=== PATIENT | male | born 1980 | race Caucasian/White ===

== ENCOUNTER 2020-07-20 20:59 | Emergency (ER) | payer OTHER, SELFPAY ==
[2020-07-20 21:24] VITALS: BP 154/104; PULSE 133; RESP 18; TEMP 36.8; O2SAT 22; BMI 23.0
--- NOTE | 2020-07-20 21:35 | ED_ITS ---
HPI - Alcohol General Chief Complaint: ETOH/Substance Use Stated Complaint: detox Time Seen by Provider: 07/20/20 21:35 Source: patient Mode of arrival: ambulatory Limitations: no limitations History of Present Illness HPI narrative: Patient alcoholic was sober for 6 months started drinking again for last 1 week plan to taper it down feels in withdrawal shaking nauseated vomiting since yesterday any came his heart rate was 133 complaint: alcohol intoxication Last drink: Days (ago) (1) Chronic alcohol use: Yes Previous visits for alcohol intoxication: Yes Recent trauma: No Associated symptoms: nausea and vomiting Related Data Previous Rx's Medication Instructions Recorded chlordiazepoxide HCl 50 mg PO Q6-8H PRN #12 cap 07/21/20 Allergies Allergy/AdvReac Type Severity Reaction Status Date / Time azithromycin Allergy Unknown Verified 07/20/20 21:13 Review of Systems Review of Systems: REVIEW OF SYSTEMS: Pertinent positives and negatives are stated above in the history. GEN: no fevers, chills, fatigue HEENT: no nasal congestion, sore throat, ear pain NEURO: no headache, dizziness, focal weakness PULM: no cough, shortness of breath CV: no chest pain, palpitations, LE edema ABD: no abdominal pain, nausea, vomiting, diarrhea : no dysuria, urgency, frequency SKIN: no rash ROS otherwise negative x 10 PMFSH Social History Social History Alcohol intake: current Alcohol intake frequency: 3 or more drinks per day Alcohol type: beer, wine and hard liquor Smoking Status: Current every day smoker Use of substances other than those prescribed or required for medical reasons: Refusing to respond Advance Directives: No Advance Directives Information Provided: Yes Physical Exam Vital Signs: Vital Signs: Last Vital Signs Temp 98.2 F 07/20/20 21:24 Pulse 98 07/21/20 02:23 Resp 18 07/21/20 01:44 BP 132/90 H 07/21/20 02:23 Pulse Ox 100 07/21/20 01:00 Body Mass Index 23.0 Appearance: Alert. Oriented X3. No acute distress. Eyes: Pupils equal, round and reactive to light. ETOH ++ ENT: Pharynx normal. Neck: Normal inspection. Neck supple. CVS: Tachycardia, normal rhythm. Pulses normal. Respiratory: No respiratory distress. Breath sounds normal. Abdomen: Soft and nontender. Skin: Skin warm and dry. Normal skin color. Normal skin turgor. Extremities: No lower extremity edema. Good range of movement Neuro: Oriented X 3. No motor deficit. No sensory deficit. MDM - Alcohol MDM Narrative Medical decision making narrative: Patient feeling much better now will discharge him on Librium plan to go to detox as outpatient Differential Diagnosis Differential diagnosis: Likely alcohol dependence Lab Data Attestation: I reviewed the patient's lab results. Result diagrams: 07/20/20 21:53 07/20/20 21:53 Labs: Lab Results 07/20/20 07/20/20 07/20/20 Range/Units 21:53 21:53 21:53 WBC 10.3 (4.8-10.8) X10*3/uL RBC 5.15 (4.60-5.80) X10*6/uL Hgb 17.2 (14.0-18.0) g/dl Hct 47.1 (42-52) % MCV 91.5 (80-98) fL MCH 33.4 H (27.0-33.0) pg MCHC 36.5 H (31.0-36.0) g/dl RDW 12.2 (11.0-16.0) % Plt Count 151 L (160-400) X10*3/uL MPV 10.1 (9.4-12.4) fL Immature Gran % (Auto) 0.3 (0.0-0.4) % Neut % (Auto) 86.6 H (45-73) % Lymph % (Auto) 5.4 L (20-40) % [place] % (Auto) 7.5 (2-11) % Eos % (Auto) 0.1 (0-4) % Baso % (Auto) 0.1 (0-2) % Lymph # (Auto) 0.6 L (1.2-4.9) X10*3/uL [place] # (Auto) 0.8 (0.1-1.2) X10*3/uL Eos # (Auto) 0.0 (0.0-0.4) X10*3/uL Baso # (Auto) 0.0 (0.0-0.2) X10*3/uL Abs Immat Gran (auto) 0.03 (0.00-0.03) X10*3/uL Absolute Neuts (auto) 8.9 H (2.0-8.3) X10*3/uL Absolute Nucleated RBC 0.000 (0.0-0.012) X10*3/uL Nucleated RBC % (auto) 0.0 (0.0-0.2) /100WBC Smear Tech's Comments VERIFIED Sodium 134 L (135-145) mmol/L Potassium 3.6 (3.3-5.1) mmol/l Chloride 96 (96-108) mmol/L Carbon Dioxide 24 (22-29) mmol/L Anion Gap 18 (12-20) BUN 16 (9-16) mg/dL Creatinine 0.84 (0.5-1.4) mg/dL Estim Creat Clear Calc 128.7 Estimated GFR > 60 Random Glucose 165 H (60-115) mg/dL Calcium 8.3 L (8.4-10.2) mg/dL Magnesium 1.4 L* (1.6-2.6) mg/dL Total Bilirubin 1.8 H (0.0-1.0) mg/dL AST 132 H (5-37) U/L ALT 97 H (0-40) U/L Alkaline Phosphatase 75 (39-117) U/L Total Protein 7.2 (6.5-8.0) g/dL Albumin 4.3 (3.5-5.0) g/dL Urine Opiates Screen (Not Detect) Ur Barbiturates Screen (Not Detect) Ur Phencyclidine Scrn (Not Detect) Ur Amphetamines Screen (Not Detect) U Benzodiazepines Scrn (Not Detect) Urine Cocaine Screen (Not Detect) U Marijuana (THC) Screen (Not Detect) Ethyl Alcohol < 10 mg/dL 07/21/20 Range/Units 01:47 WBC (4.8-10.8) X10*3/uL RBC (4.60-5.80) X10*6/uL Hgb (14.0-18.0) g/dl Hct (42-52) % MCV (80-98) fL MCH (27.0-33.0) pg MCHC (31.0-36.0) g/dl RDW (11.0-16.0) % Plt Count (160-400) X10*3/uL MPV (9.4-12.4) fL Immature Gran % (Auto) (0.0-0.4) % Neut % (Auto) (45-73) % Lymph % (Auto) (20-40) % [place] % (Auto) (2-11) % Eos % (Auto) (0-4) % Baso % (Auto) (0-2) % Lymph # (Auto) (1.2-4.9) X10*3/uL [place] # (Auto) (0.1-1.2) X10*3/uL Eos # (Auto) (0.0-0.4) X10*3/uL Baso # (Auto) (0.0-0.2) X10*3/uL Abs Immat Gran (auto) (0.00-0.03) X10*3/uL Absolute Neuts (auto) (2.0-8.3) X10*3/uL Absolute Nucleated RBC (0.0-0.012) X10*3/uL Nucleated RBC % (auto) (0.0-0.2) /100WBC Smear Tech's Comments Sodium (135-145) mmol/L Potassium (3.3-5.1) mmol/l Chloride (96-108) mmol/L Carbon Dioxide (22-29) mmol/L Anion Gap (12-20) BUN (9-16) mg/dL Creatinine (0.5-1.4) mg/dL Estim Creat Clear Calc Estimated GFR Random Glucose (60-115) mg/dL Calcium (8.4-10.2) mg/dL Magnesium (1.6-2.6) mg/dL Total Bilirubin (0.0-1.0) mg/dL AST (5-37) U/L ALT (0-40) U/L Alkaline Phosphatase (39-117) U/L Total Protein (6.5-8.0) g/dL Albumin (3.5-5.0) g/dL Urine Opiates Screen Not Detected (Not Detect) Ur Barbiturates Screen Not Detected (Not Detect) Ur Phencyclidine Scrn Not Detected (Not Detect) Ur Amphetamines Screen Not Detected (Not Detect) U Benzodiazepines Scrn Not Detected (Not Detect) Urine Cocaine Screen Not Detected (Not Detect) U Marijuana (THC) Screen POSITIVE H (Not Detect) Ethyl Alcohol mg/dL Discharge Plan Discharge Clinical Impression: Alcohol withdrawal syndrome Qualifiers: Complication of substance-induced condition: uncomplicated Qualified Code(s): F10.230 - Alcohol dependence with withdrawal, uncomplicated Patient Disposition: Home, Self-Care Instructions: Abuse of Alcohol (ED), Alcohol Withdrawal (ED) Additional Instructions: Follow-up with detox as advised. Take medication for withdrawal. Drink plenty of fluids Prescriptions: New chlordiazepoxide HCl 25 mg capsule 50 mg PO Q6-8H PRN (Reason: alcohol withdrawal) Qty: 12 RF: 0
[2020-07-20 22:00] VITALS: PULSE 115; RESP 18
[2020-07-20] MEDS: 0.9 % Sodium Chloride 1,000 ML 999 ML IVCONT (22:01)
[2020-07-20] MEDS: LORazepam 2 MG/ML VIAL 1 MG IVPUSH ×2 (22:01→23:54)
[2020-07-20] MEDS: ondansetron HCL 4 MG/2 ML VIAL IVPUSH (22:01)
[2020-07-20] MEDS: Famotidine/PF 20 MG/2 ML VIAL IVPUSH (22:02)
[2020-07-20 22:04] LABS: Basophils Percent Auto 0.1 % (0-2); Eosinophils Percent Auto 0.1 % (0-4); Hematocrit 47.1 % (42-52); Hemoglobin 17.2 g/dl (14.0-18.0); Imm Gran Abs Auto 0.03 X10*3/uL (0.00-0.03); Imm Gran Pct Auto 0.3 % (0.0-0.4); Lymphocytes Absolute Auto 0.6 X10*3/uL (1.2-4.9); Lymphocytes Percent Auto 5.4 % (20-40); MANUAL DIFF FLAG SCAN; Mean Corpuscular HGB Conc 36.5 g/dl (31.0-36.0); Mean Corpuscular Hemoglobin 33.4 pg (27.0-33.0); Mean Corpuscular Volume 91.5 fL (80-98); Mean Platelet Volume 10.1 fL (9.4-12.4); Monocytes Absolute Auto 0.8 X10*3/uL (0.1-1.2); Monocytes Percent Auto 7.5 % (2-11); Neutrophils Absolute Auto 8.9 X10*3/uL (2.0-8.3); Neutrophils Percent Auto 86.6 % (45-73); Platelet Count 151 X10*3/uL (160-400); Red Blood Count 5.15 X10*6/uL (4.60-5.80); Red Cell Distribution Width 12.2 % (11.0-16.0); SCAN SMEAR FLAG 1; White Blood Count 10.3 X10*3/uL (4.8-10.8)
[2020-07-20 22:19] LABS: Ethanol < 10 mg/dL
[2020-07-20 22:27] LABS: Alanine Aminotransferase 97 U/L (0-40); Albumin Level 4.3 g/dL (3.5-5.0); Alkaline Phosphatase 75 U/L (39-117); Anion Gap 18 (12-20); Aspartate Amino Transferase 132 U/L (5-37); Bilirubin Total 1.8 mg/dL (0.0-1.0); Blood Urea Nitrogen 16 mg/dL (9-16); Calcium 8.3 mg/dL (8.4-10.2); Carbon Dioxide 24 mmol/L (22-29); Chloride 96 mmol/L (96-108); Creatinine Clr Calc Pharmacy 128.7; Estimated Glomerular Filt Rate > 60; Glucose Random 165 mg/dL (60-115); Magnesium 1.4 mg/dL (1.6-2.6); Potassium 3.6 mmol/l (3.3-5.1); Sodium 134 mmol/L (135-145); Total Protein 7.2 g/dL (6.5-8.0)
[2020-07-20 22:35] LABS: SLIDE REVIEW VERIFIED
[2020-07-20] MEDS: Magnesium Sulfate/H2O 2 GM/50 ML PIGGYBACK IV (23:17)
[2020-07-21] VITALS: BP 147/99; PULSE 109; RESP 18; O2SAT 100
--- NOTE | 2020-07-21 00:11 | MHC.CARE ---
CARE Team meets with pt to discuss substance use treatment resources. Pt identifies that he is feeling unwell and would like to be admitted to the hospital for withdrawal. CARE Team explains the resources for community detox. CARE Team speaks with Dr. Luque, who reports that they are continuing to monitor pt's heart rate. Pt has not gone through the process of self referral to detox in the past and would like the assistance of CARE Team. CARE Team calls local ATS units including [facility], [facility], [facility] and [facility]. Per CHANDRIKA, no other openings for ATS tonight. CARE Team is available to conduct another ATS bedsearch in the morning, or, should pt be discharged, is available to provide contact info for self referral to ATS.
[2020-07-21] MEDS: chlordiazePOXIDE HCl 25 MG CAPSULE 50 MG PO (00:35)
[2020-07-21 01:00] VITALS: BP 145/93; PULSE 100; RESP 18; O2SAT 100
--- NOTE | 2020-07-21 01:43 | PC.NURSE ---
pt reamins mildly tachycardic 100-110 while resting. tremors only noted when patient is conversing with staff. patient is atremoulus at rest. patient ambulated with steady gait to bathroom to obtain ua/
[2020-07-21 01:44] VITALS: PULSE 110; RESP 18
--- NOTE | 2020-07-21 01:50 | MHC.CARE ---
CARE Team meets with pt in order to provide list of ATS units w/ contact info, and provides pt with instruction to call at 8 AM. If pt is not discharged and still in the ED by morning, CARE Team can assist with ATS placement.
[2020-07-21 02:23] VITALS: BP 132/90; PULSE 98
[2020-07-21 02:29] LABS: Amphetamine Screen Urine Not Detected (Not Detect); Barbiturates, Urine Not Detected (Not Detect); Benzodiazepines Screen Urine Not Detected (Not Detect); Cannabinoid Screen Urine POSITIVE (Not Detect); Cocaine Screen Urine Not Detected (Not Detect); Opiate Screen Urine Not Detected (Not Detect); Phencyclidine Screen Urine Not Detected (Not Detect)
[2020-07-21 02:36] LABS: Glucose Urine UA NEG (NEG); Leukocyte Esterase Urine NEG (NEG); Nitrite Urine NEG (NEG); PH 6.5 (5.0-8.0); Specific Gravity - Urine >= 1.030 (1.005-1.025); Urine Blood TRACE (NEG); Urine Ketones 40 MG/DL (NEG); Urine Protein 1+ MG/DL (NEG-TRACE)
[2020-07-21 02:48] LABS: Appearance Urine HAZY; Color Urine AMBER
[2020-07-21 03:02] LABS: Bacteria Urine 1+ /LPF; Mucus Urine 2+ /LPF; Squamous Epithelial Cell Urine 1+ /LPF
== END 2020-07-21 02:55 | disposition home or self-care (01) ==
PROVIDERS: Emergency Provider Internal Medicine; PCP Family Medicine
DX: F10.230 Alcohol dependence with withdrawal, uncomplicated (principal); F17.200 Nicotine dependence, unspecified, uncomplicated
CPT/HCPCS: 36415; 80053; 80307; 80320; 81001; 83735; 85025; 96361; 96365; 96375; 96376; 99285; J2060; J2405; J3411; J3475

== ENCOUNTER 2020-07-23 10:43 | Emergency (ER) | payer OTHER, SELFPAY ==
[2020-07-23] VITALS (7 sets, daily range): BP systolic 112–128; BP diastolic 82–93; PULSE 88–116; RESP 16–20; TEMP 36.6–37.6; O2SAT 95–98; BMI 23.3
--- NOTE | 2020-07-23 11:08 | ECG_ITS ---
Test Reason : SOB Blood Pressure : / mmHG Vent. Rate : 096 BPM Atrial Rate : 096 BPM P-R Int : 150 ms QRS Dur : 090 ms QT Int : 344 ms P-R-T Axes : 054 060 020 degrees QTc Int : 434 ms Normal sinus rhythm Normal ECG No previous ECGs available Referred By: Shae Sheppard Electronically Signed By:JIMENEZ COERY MD
--- NOTE | 2020-07-23 11:09 | XR_ITS ---
EXAMINATION: XR CHEST CLINICAL INFORMATION: Shortness of breath, cough COMPARISON: None TECHNIQUE: Portable upright AP view of the chest was obtained. FINDINGS: There is short linear scar versus disc atelectasis adjacent to cardiac apex. The lungs otherwise clear and there is no airspace consolidation, groundglass opacity, or effusion. The heart is normal in size. The hilar and mediastinal contours and bony structures are unremarkable. XR/XR chest 1V IMPRESSION: Short linear scar versus disc atelectasis left lateral base. Lungs otherwise clear.
--- NOTE | 2020-07-23 11:10 | ED_ITS ---
HPI - General Adult General Chief complaint: General Medical Stated complaint: detox alcohol Time Seen by Provider: 07/23/20 10:51 Source: patient Mode of arrival: ambulatory History of Present Illness HPI narrative: 39-year-old male with a past medical history of ETOH abuse presenting to the ED complaining of alcohol withdrawal, chest congestion, productive cough, and worsening SOB x a few days. Reports has been unable to keep anything down due to N/V. Admits to feeling shaky/tremulous, SOB worse on exertion with mild chest discomfort suspected from dry heaving. Was seen and treated in the ED on 07/20 for ETOH withdrawal, discharged with Librium, states ran out of Librium a few days ago. Admits was sober for 6 months and started drinking about a week ago, last drink Thursday. Also reports marijuana use, denies other illicit drugs. Denies recent travel, fever, LE edema, exposure to COVID-19, recent travel Onset (ago): day(s) Related Data Previous Rx's Medication Instructions Recorded chlordiazepoxide HCl 50 mg PO Q6-8H PRN #12 cap 07/21/20 chlordiazepoxide HCl 50 mg PO Q8H PRN 3 Days #9 cap 07/23/20 ondansetron HCl [Zofran] 4 mg PO Q8H PRN #10 tab 07/23/20 Allergies Allergy/AdvReac Type Severity Reaction Status Date / Time azithromycin Allergy Unknown Verified 07/23/20 10:46 Review of Systems Review of Systems: Constitutional: No Weight loss, No Fever, + Chills Cardiovascular: + Chest wall Pain, + SOB, + Dyspnea on Exertion, No Edema Respiratory: + Cough, + Sputum, No Wheezing Gastrointestinal: + Nausea, + Vomiting, No Diarrhea, No Constipation, + Abdominal cramping Musculoskeletal: No joint pain, No Myalgias, No Joint Swelling Skin: No Skin Lesions, No rash Neuro: +genealized fatigue/malaise, +tremulous Psych: No Anxiety/Panic, No Depression Yes all other systems are reviewed and are negative [facility] Past Medical History Attestation statement: The following information was validated with the patient. Social History Social History Alcohol intake: former Smoking Status: Unknown if ever smoked Use of substances other than those prescribed or required for medical reasons: No Advance Directives: No Advance Directives Information Provided: No Physical Exam Vital Signs: Vital Signs: Last Vital Signs Temp 99.6 F 07/23/20 14:33 Pulse 88 07/23/20 14:33 Resp 20 07/23/20 14:33 BP 128/93 H 07/23/20 14:33 Pulse Ox 98 07/23/20 14:33 Body Mass Index 23.3 Const: Other: Mildly tremulous General: cooperative Orientatio n/consciousness: patient oriented x3 Limitations: no limitations HENMT: Head: Yes normal to inspection Ears: hearing grossly normal bilaterally General nose exam: Normal external nose present Face and sinus: Yes normal facial exam Eyes: General: appearance normal, both eyes and all related structures EOM: EOMs intact bilaterally Neck: Neck: Yes normal visual inspection Chest: Chest palpation & inspection: normal inspection of the chest, no crepitus and tenderness (Mild bilateral lower chest wall tenderness) Resp: Effort & Inspection: normal respiratory effort and no stridor Auscultation: crackles on the right and no wheezes Cardio: Rate: regular rate Heart sounds: S1 normal heart sound present and S2 normal heart sound present GI: Inspection: Yes normal to inspection Palpation (GI): Soft to palpation, Tenderness to palpation present (GI) in the epigastrum, no guarding and not rigid Skin: Rashes: no rashes Wounds: no wounds Neuro: General: patient oriented x3 Gait exam (Neuro): Normal gait present Extrem: Other: No LE edema General: Yes normal to inspection Course Course Course Narrative: * 1213-- K+ slightly low > PO repletion ordered * bilirubins/AST/ALT chronically elevated * 1308--lipase 188 > due to patient's tachycardia, and decreased p.o. intake from N/V will obtain CT to rule ou tcomplicated pancreatitis * COVID-19/influenza/RSV negative, CXR with short linear scar versus disc atelectasis left lateral base. Lungs otherwise clear * Ferritin and CRP elevated * 1515-- tox screen positive for benzos, CT showing acute pancreatitis without evidence complication > low concern for severe sepsis. Lab abnormalities chronic from substance abuse, tachycardia likely from withdrawal > patient was able to tolerate p.o. liquid in the ED, will give additional L of IVF and plan for DC home with very strict return precautions * Patient refusing L of IVF, plan for discharge home with close follow-up Medical Decision Making [facility] Narrative Medical decision making narrative: 39-year-old male with a past medical history of ETOH abuse presenting to the ED complaining of alcohol withdrawal, chest congestion, productive cough, and worsening SOB x a few days. Reports has been unable to keep anything down due to N/V. Admits to feeling shaky/tremulous, SOB worse on exertion with mild chest discomfort suspected from dry heaving. On exam mildly tachycardic, slightly tremulous, abdomen soft with mild epigastric tenderness, lungs with crackles in right base and chest wall ttp. Concern for ETOH withdrawal vs viral syndrome/COVID-19 vs pneumonia. Concern for dehydration. Low concern for PE/CHF Low concern for severe sepsis time Patient is not interested in detox plan: EKG, labs, CXR, IVF, COVID, Sx tx, reassess Lab Data Result diagrams: 07/23/20 11:27 07/23/20 11:27 Labs: Lab Results 07/23/20 07/23/20 07/23/20 Range/Units 11:18 11:27 11:27 WBC 6.8 (4.8-10.8) X10*3/uL RBC 4.23 L (4.60-5.80) X10*6/uL Hgb 14.3 (14.0-18.0) g/dl Hct 39.9 L (42-52) % MCV 94.3 (80-98) fL MCH 33.8 H (27.0-33.0) pg MCHC 35.8 (31.0-36.0) g/dl RDW 11.9 (11.0-16.0) % Plt Count 140 L (160-400) X10*3/uL MPV 10.0 (9.4-12.4) fL Immature Gran % (Auto) 0.4 (0.0-0.4) % Neut % (Auto) 76.3 H (45-73) % Lymph % (Auto) 7.8 L (20-40) % [place] % (Auto) 12.1 H (2-11) % Eos % (Auto) 3.1 (0-4) % Baso % (Auto) 0.3 (0-2) % Lymph # (Auto) 0.5 L (1.2-4.9) X10*3/uL [place] # (Auto) 0.8 (0.1-1.2) X10*3/uL Eos # (Auto) 0.2 (0.0-0.4) X10*3/uL Baso # (Auto) 0.0 (0.0-0.2) X10*3/uL Abs Immat Gran (auto) 0.03 (0.00-0.03) X10*3/uL Absolute Neuts (auto) 5.2 (2.0-8.3) X10*3/uL Absolute Nucleated RBC 0.000 (0.0-0.012) X10*3/uL Nucleated RBC % (auto) 0.0 (0.0-0.2) /100WBC Smear Tech's Comments VERIFIED Hold Blue Top SEE NOTE Sodium (135-145) mmol/L Potassium (3.3-5.1) mmol/l Chloride (96-108) mmol/L Carbon Dioxide (22-29) mmol/L Anion Gap (12-20) BUN (9-16) mg/dL Creatinine (0.5-1.4) mg/dL Estim Creat Clear Calc Estimated GFR Random Glucose (60-115) mg/dL Calcium (8.4-10.2) mg/dL Magnesium (1.6-2.6) mg/dL Ferritin (20-250) ng/mL Total Bilirubin (0.0-1.0) mg/dL Direct Bilirubin (0.0-0.5) mg/dL AST (5-37) U/L ALT (0-40) U/L Alkaline Phosphatase (39-117) U/L Lactate Dehydrogenase (118-273) U/L Troponin I High Sens (<3.5-35.0) ng/L C-Reactive Protein (< or = 0.50) mg/dL B-Natriuretic Peptide (<100) pg/mL Total Protein (6.5-8.0) g/dL Albumin (3.5-5.0) g/dL Lipase (8-78) U/L Procalcitonin ng/mL Urine Opiates Screen (Not Detect) Ur Barbiturates Screen (Not Detect) Ur Phencyclidine Scrn (Not Detect) Ur Amphetamines Screen (Not Detect) U Benzodiazepines Scrn (Not Detect) Urine Cocaine Screen (Not Detect) U Marijuana (THC) Screen (Not Detect) Ethyl Alcohol mg/dL Coronavirus (PCR) NEGATIVE (Negative) Influenza Type A (PCR) NEGATIVE (Negative) Influenza Type B (PCR) NEGATIVE (Negative) RSV RNA Qual (PCR) NEGATIVE (Negative) 07/23/20 07/23/20 07/23/20 Range/Units 11:27 11:27 11:27 WBC (4.8-10.8) X10*3/uL RBC (4.60-5.80) X10*6/uL Hgb (14.0-18.0) g/dl Hct (42-52) % MCV (80-98) fL MCH (27.0-33.0) pg MCHC (31.0-36.0) g/dl RDW (11.0-16.0) % Plt Count (160-400) X10*3/uL MPV (9.4-12.4) fL Immature Gran % (Auto) (0.0-0.4) % Neut % (Auto) (45-73) % Lymph % (Auto) (20-40) % [place] % (Auto) (2-11) % Eos % (Auto) (0-4) % Baso % (Auto) (0-2) % Lymph # (Auto) (1.2-4.9) X10*3/uL [place] # (Auto) (0.1-1.2) X10*3/uL Eos # (Auto) (0.0-0.4) X10*3/uL Baso # (Auto) (0.0-0.2) X10*3/uL Abs Immat Gran (auto) (0.00-0.03) X10*3/uL Absolute Neuts (auto) (2.0-8.3) X10*3/uL Absolute Nucleated RBC (0.0-0.012) X10*3/uL Nucleated RBC % (auto) (0.0-0.2) /100WBC Smear Tech's Comments Hold Blue Top Sodium 134 L (135-145) mmol/L Potassium 3.2 L (3.3-5.1) mmol/l Chloride 99 (96-108) mmol/L Carbon Dioxide 26 (22-29) mmol/L Anion Gap 12 (12-20) BUN 8 L (9-16) mg/dL Creatinine 0.65 (0.5-1.4) mg/dL Estim Creat Clear Calc 172.4 Estimated GFR > 60 Random Glucose 142 H (60-115) mg/dL Calcium 8.0 L (8.4-10.2) mg/dL Magnesium 2.1 (1.6-2.6) mg/dL Ferritin 2024 H (20-250) ng/mL Total Bilirubin 1.3 H (0.0-1.0) mg/dL Direct Bilirubin 0.7 H (0.0-0.5) mg/dL AST 49 H D (5-37) U/L ALT 44 H (0-40) U/L Alkaline Phosphatase 54 D (39-117) U/L Lactate Dehydrogenase 235 (118-273) U/L Troponin I High Sens (<3.5-35.0) ng/L C-Reactive Protein 18.27 H (< or = 0.50) mg/dL B-Natriuretic Peptide (<100) pg/mL Total Protein 5.9 L (6.5-8.0) g/dL Albumin 3.4 L D (3.5-5.0) g/dL Lipase 188 H (8-78) U/L Procalcitonin ng/mL Urine Opiates Screen (Not Detect) Ur Barbiturates Screen (Not Detect) Ur Phencyclidine Scrn (Not Detect) Ur Amphetamines Screen (Not Detect) U Benzodiazepines Scrn (Not Detect) Urine Cocaine Screen (Not Detect) U Marijuana (THC) Screen (Not Detect) Ethyl Alcohol < 10 mg/dL Coronavirus (PCR) (Negative) Influenza Type A (PCR) (Negative) Influenza Type B (PCR) (Negative) RSV RNA Qual (PCR) (Negative) 07/23/20 07/23/20 07/23/20 Range/Units 11:27 11:27 11:27 WBC (4.8-10.8) X10*3/uL RBC (4.60-5.80) X10*6/uL Hgb (14.0-18.0) g/dl Hct (42-52) % MCV (80-98) fL MCH (27.0-33.0) pg MCHC (31.0-36.0) g/dl RDW (11.0-16.0) % Plt Count (160-400) X10*3/uL MPV (9.4-12.4) fL Immature Gran % (Auto) (0.0-0.4) % Neut % (Auto) (45-73) % Lymph % (Auto) (20-40) % [place] % (Auto) (2-11) % Eos % (Auto) (0-4) % Baso % (Auto) (0-2) % Lymph # (Auto) (1.2-4.9) X10*3/uL [place] # (Auto) (0.1-1.2) X10*3/uL Eos # (Auto) (0.0-0.4) X10*3/uL Baso # (Auto) (0.0-0.2) X10*3/uL Abs Immat Gran (auto) (0.00-0.03) X10*3/uL Absolute Neuts (auto) (2.0-8.3) X10*3/uL Absolute Nucleated RBC (0.0-0.012) X10*3/uL Nucleated RBC % (auto) (0.0-0.2) /100WBC Smear Tech's Comments Hold Blue Top Sodium (135-145) mmol/L Potassium (3.3-5.1) mmol/l Chloride (96-108) mmol/L Carbon Dioxide (22-29) mmol/L Anion Gap (12-20) BUN (9-16) mg/dL Creatinine (0.5-1.4) mg/dL Estim Creat Clear Calc Estimated GFR Random Glucose (60-115) mg/dL Calcium (8.4-10.2) mg/dL Magnesium (1.6-2.6) mg/dL Ferritin (20-250) ng/mL Total Bilirubin (0.0-1.0) mg/dL Direct Bilirubin (0.0-0.5) mg/dL AST (5-37) U/L ALT (0-40) U/L Alkaline Phosphatase (39-117) U/L Lactate Dehydrogenase (118-273) U/L Troponin I High Sens < 3.5 (<3.5-35.0) ng/L C-Reactive Protein (< or = 0.50) mg/dL B-Natriuretic Peptide 25 (<100) pg/mL Total Protein (6.5-8.0) g/dL Albumin (3.5-5.0) g/dL Lipase (8-78) U/L Procalcitonin 0.16 ng/mL Urine Opiates Screen (Not Detect) Ur Barbiturates Screen (Not Detect) Ur Phencyclidine Scrn (Not Detect) Ur Amphetamines Screen (Not Detect) U Benzodiazepines Scrn (Not Detect) Urine Cocaine Screen (Not Detect) U Marijuana (THC) Screen (Not Detect) Ethyl Alcohol mg/dL Coronavirus (PCR) (Negative) Influenza Type A (PCR) (Negative) Influenza Type B (PCR) (Negative) RSV RNA Qual (PCR) (Negative) 07/23/20 Range/Units 14:53 WBC (4.8-10.8) X10*3/uL RBC (4.60-5.80) X10*6/uL Hgb (14.0-18.0) g/dl Hct (42-52) % MCV (80-98) fL MCH (27.0-33.0) pg MCHC (31.0-36.0) g/dl RDW (11.0-16.0) % Plt Count (160-400) X10*3/uL MPV (9.4-12.4) fL Immature Gran % (Auto) (0.0-0.4) % Neut % (Auto) (45-73) % Lymph % (Auto) (20-40) % [place] % (Auto) (2-11) % Eos % (Auto) (0-4) % Baso % (Auto) (0-2) % Lymph # (Auto) (1.2-4.9) X10*3/uL [place] # (Auto) (0.1-1.2) X10*3/uL Eos # (Auto) (0.0-0.4) X10*3/uL Baso # (Auto) (0.0-0.2) X10*3/uL Abs Immat Gran (auto) (0.00-0.03) X10*3/uL Absolute Neuts (auto) (2.0-8.3) X10*3/uL Absolute Nucleated RBC (0.0-0.012) X10*3/uL Nucleated RBC % (auto) (0.0-0.2) /100WBC Smear Tech's Comments Hold Blue Top Sodium (135-145) mmol/L Potassium (3.3-5.1) mmol/l Chloride (96-108) mmol/L Carbon Dioxide (22-29) mmol/L Anion Gap (12-20) BUN (9-16) mg/dL Creatinine (0.5-1.4) mg/dL Estim Creat Clear Calc Estimated GFR Random Glucose (60-115) mg/dL Calcium (8.4-10.2) mg/dL Magnesium (1.6-2.6) mg/dL Ferritin (20-250) ng/mL Total Bilirubin (0.0-1.0) mg/dL Direct Bilirubin (0.0-0.5) mg/dL AST (5-37) U/L ALT (0-40) U/L Alkaline Phosphatase (39-117) U/L Lactate Dehydrogenase (118-273) U/L Troponin I High Sens (<3.5-35.0) ng/L C-Reactive Protein (< or = 0.50) mg/dL B-Natriuretic Peptide (<100) pg/mL Total Protein (6.5-8.0) g/dL Albumin (3.5-5.0) g/dL Lipase (8-78) U/L Procalcitonin ng/mL Urine Opiates Screen Not Detected (Not Detect) Ur Barbiturates Screen Not Detected (Not Detect) Ur Phencyclidine Scrn Not Detected (Not Detect) Ur Amphetamines Screen Not Detected (Not Detect) U Benzodiazepines Scrn POSITIVE H (Not Detect) Urine Cocaine Screen Not Detected (Not Detect) U Marijuana (THC) Screen Not Detected (Not Detect) Ethyl Alcohol mg/dL Coronavirus (PCR) (Negative) Influenza Type A (PCR) (Negative) Influenza Type B (PCR) (Negative) RSV RNA Qual (PCR) (Negative) Discharge Plan Discharge Clinical Impression: Acute pancreatitis Qualifiers: Pancreatitis type: alcohol induced Acute pancreatitis complication: unspecified Qualified Code(s): K85.20 - Alcohol induced acute pancreatitis without necrosis or infection Alcohol withdrawal Qualifiers: Complication of substance-induced condition: uncomplicated Qualified Code(s): F10.230 - Alcohol dependence with withdrawal, uncomplicated Patient Disposition: Home, Self-Care Instructions: Pancreatitis (ED), Alcohol Withdrawal (ED), Clear Liquid Diet (ED) Additional Instructions: YOU HAVE PANCREATITIS YOU NEED TO PRACTICE A CLEAR LIQUID DIET FOR THE NEXT 3 DAYS, IT IS CRUCIAL THAT HER STAYING HYDRATED, IN ADDITION ZOFRAN [place] MEDICATION, TAKE NEEDED DO NOT DRINK ALCOHOL TAKE LIBRIUM NEEDED FOR ALCOHOL WITHDRAWAL SYMPTOMS YOU NEED TO FOLLOW-UP WITH YOUR DOCTOR IF YOUR ABDOMINAL PAIN PERSISTS OR WORSENS, BECOMES UNBEARABLE, YOU ARE UNABLE TO EAT OR DRINK, OR HAVE FEVER RETURN TO THE ED IMMEDIATELY Prescriptions: New chlordiazepoxide HCl 25 mg capsule 50 mg PO Q8H PRN (Reason: alcohol withdrawal) 3 Days Qty: 9 RF: 0 ondansetron HCl [Zofran] 4 mg tablet 4 mg PO Q8H PRN (Reason: nausea and vomiting) Qty: 10 RF: 0 No Action chlordiazepoxide HCl 25 mg capsule 50 mg PO Q6-8H PRN (Reason: alcohol withdrawal) Qty: 12 RF: 0 Referrals: Olayinka Justin MD [Primary Care Provider] - 2 days
[2020-07-23] MEDS: Famotidine/PF 20 MG/2 ML VIAL IVPUSH (11:37)
[2020-07-23] MEDS: chlordiazePOXIDE HCl 25 MG CAPSULE 50 MG PO (11:37)
[2020-07-23] MEDS: Magnesium Hydrox/Alum Hydrox 30 ML ORAL.SUSP PO (11:37)
[2020-07-23] MEDS: ondansetron HCL 4 MG/2 ML VIAL IVPUSH (11:37)
[2020-07-23] MEDS: 0.9 % Sodium Chloride 1,000 ML 999 ML IVCONT (11:37)
[2020-07-23 11:56] LABS: Ethanol < 10 mg/dL
[2020-07-23] MEDS: Albuterol Sulfate 90 MCG 8 GM INHALER 4 PUFF INHALE (11:57)
[2020-07-23 11:59] LABS: Basophils Percent Auto 0.3 % (0-2); Eosinophils Absolute Auto 0.2 X10*3/uL (0.0-0.4); Eosinophils Percent Auto 3.1 % (0-4); Hematocrit 39.9 % (42-52); Hemoglobin 14.3 g/dl (14.0-18.0); Imm Gran Abs Auto 0.03 X10*3/uL (0.00-0.03); Imm Gran Pct Auto 0.4 % (0.0-0.4); Lymphocytes Absolute Auto 0.5 X10*3/uL (1.2-4.9); Lymphocytes Percent Auto 7.8 % (20-40); MANUAL DIFF FLAG SCAN; Mean Corpuscular HGB Conc 35.8 g/dl (31.0-36.0); Mean Corpuscular Hemoglobin 33.8 pg (27.0-33.0); Mean Corpuscular Volume 94.3 fL (80-98); Monocytes Absolute Auto 0.8 X10*3/uL (0.1-1.2); Monocytes Percent Auto 12.1 % (2-11); Neutrophils Absolute Auto 5.2 X10*3/uL (2.0-8.3); Neutrophils Percent Auto 76.3 % (45-73); Platelet Count 140 X10*3/uL (160-400); Red Blood Count 4.23 X10*6/uL (4.60-5.80); Red Cell Distribution Width 11.9 % (11.0-16.0); SCAN SMEAR FLAG 1; White Blood Count 6.8 X10*3/uL (4.8-10.8)
[2020-07-23 12:01] LABS: Alanine Aminotransferase 44 U/L (0-40); Albumin Level 3.4 g/dL (3.5-5.0); Alkaline Phosphatase 54 U/L (39-117); Anion Gap 12 (12-20); Aspartate Amino Transferase 49 U/L (5-37); Bilirubin Direct 0.7 mg/dL (0.0-0.5); Bilirubin Total 1.3 mg/dL (0.0-1.0); Blood Urea Nitrogen 8 mg/dL (9-16); Carbon Dioxide 26 mmol/L (22-29); Chloride 99 mmol/L (96-108); Creatinine Clr Calc Pharmacy 172.4; Estimated Glomerular Filt Rate > 60; Glucose Random 142 mg/dL (60-115); Magnesium 2.1 mg/dL (1.6-2.6); Potassium 3.2 mmol/l (3.3-5.1); Sodium 134 mmol/L (135-145); Total Protein 5.9 g/dL (6.5-8.0)
[2020-07-23 12:05] LABS: C Reactive Protein 18.27 mg/dL (< or = 0.50); Lactate Dehydrogenase 235 U/L (118-273)
[2020-07-23 12:14] LABS: Influenza A PCR NEGATIVE (Negative); Influenza B PCR NEGATIVE (Negative); Resp Syncy Virus RNA Qual PCR NEGATIVE (Negative); SARS COV2 PCR INHOUSE NEGATIVE (Negative)
[2020-07-23 12:18] LABS: B Type Natriuretic Peptide 25 pg/mL (<100)
[2020-07-23 12:20] LABS: Troponin-I High Sensitivity < 3.5 ng/L (<3.5-35.0)
[2020-07-23 12:25] LABS: Procalcitonin 0.16 ng/mL
[2020-07-23 12:27] LABS: Lipase 188 U/L (8-78)
[2020-07-23 12:31] LABS: SLIDE REVIEW VERIFIED
--- NOTE | 2020-07-23 13:11 | PC.NURSE ---
po challenge initiated, given crackers and water
--- NOTE | 2020-07-23 13:12 | CT_ITS ---
EXAMINATION: CT ABDOMEN AND PELVIS WITH CONTRAST CLINICAL INFORMATION: Epigastric pain with elevated lipase. COMPARISON: Ultrasound of February 26, 2020 TECHNIQUE: Multidetector volumetric images were obtained from the superior aspect of the liver through the pubic symphysis following administration 85 mL of Omnipaque 350 intravenous contrast. Sagittal and coronal reformatted images were obtained on the technologist's workstation. Oral contrast: No This CT examination was performed using dose optimization techniques as appropriate, variously including the following: *Automated exposure control *Adjustment of mA and/or kV according to patient size (this includes techniques or standardized protocols for targeted exams where dose is matched to indication/reason for exam; i.e. extremities or head) *Use of iterative reconstruction technique DLP: 478 mGy-cm FINDINGS: LUNG BASES: There is bibasilar dependent atelectasis present. There is a trace left pleural effusion. Heart normal size. No pericardial effusion. LIVER, GALLBLADDER, AND BILIARY TREE: There is diffuse fatty infiltration of the liver. No suspicious focal mass or intrahepatic bile duct dilatation is seen. There is some diminished density along the falciform ligament and anterior aspect of segment 4 of the liver consistent with focal fatty sparing. . The gallbladder is unremarkable with no evidence of radiopaque gallstones, gallbladder wall thickening, or obvious pericholecystic inflammatory changes. PANCREAS: There is some edematous change within the peripancreatic region as well as stranding within the mesentery with the appearance of acute pancreatitis. No regions of vascular devitalization of the pancreas is appreciated. No pseudocyst formation is noted. SPLEEN: Unremarkable. ADRENAL GLANDS: Unremarkable. KIDNEYS AND URETERS: The kidneys are normal in size, shape, and attenuation. No hydronephrosis, hydroureter, or calculi seen. No perinephric stranding. BLADDER: Unremarkable. GASTROINTESTINAL TRACT: There is diverticulosis of the sigmoid colon without evidence of acute diverticulitis. There is no evidence of acute appendicitis. No dilated loops of large or small bowel. No free air identified. No free fluid is seen. ABDOMINAL WALL: No significant hernia is appreciated. LYMPH NODES: No lymphadenopathy appreciated. VASCULAR: Portal and splenic veins patent. Visceral vessels patent. No abdominal aortic aneurysm. PELVIC VISCERA: Unremarkable. OSSEOUS STRUCTURES: Unremarkable. No suspicious destructive bony lesion identified. CT/CT abdomen pelvis w con IMPRESSION: Acute pancreatitis without evidence of vascular devitalization of parenchyma. Fatty infiltration of the liver.
[2020-07-23 13:29] LABS: Ferritin 2024 ng/mL (20-250)
[2020-07-23] MEDS: iohexoL 350 MG/ML 100 ML INFUS..BTL IV (14:19)
[2020-07-23 15:23] LABS: Amphetamine Screen Urine Not Detected (Not Detect); Barbiturates, Urine Not Detected (Not Detect); Benzodiazepines Screen Urine POSITIVE (Not Detect); Cannabinoid Screen Urine Not Detected (Not Detect); Cocaine Screen Urine Not Detected (Not Detect); Opiate Screen Urine Not Detected (Not Detect); Phencyclidine Screen Urine Not Detected (Not Detect)
== END 2020-07-23 16:36 | disposition home or self-care (01) ==
PROVIDERS: Physician Assistant; Emergency Provider Emergency Medicine; PCP Family Medicine
DX: K85.20 Alcohol induced acute pancreatitis without necrosis or infection (principal); F10.230 Alcohol dependence with withdrawal, uncomplicated; Y90.0 Blood alcohol level of less than 20 mg/100 ml; Z20.828 Contact with and (suspected) exposure to other viral communicable diseases
CPT/HCPCS: 0241U; 36415; 71045; 74177; 80048; 80076; 80307; 80320; 82728; 83615; 83690; 83735; 83880; 84145; 84484; 85025; 86140; 93005; 96361; 96374; 96375; 99284; J2405; Q9967

== ENCOUNTER 2020-10-19 06:22 | Inpatient (IN) | payer OTHER, SELFPAY ==
[2020-10-19] VITALS (12 sets, daily range): BP systolic 141–172; BP diastolic 103–122; PULSE 99–140; RESP 16–30; TEMP 36.7–37.4; O2SAT 94–98; BMI 23.1
--- NOTE | ~2020-10-19 | CT_ITS ---
EXAMINATION: CT ABDOMEN AND PELVIS WITH CONTRAST CLINICAL INFORMATION: Acute pancreatitis. Rule out necrosis. COMPARISON: CT abdomen and pelvis 07/23/2020. TECHNIQUE: Multidetector volumetric images were obtained from the superior aspect of the liver through the pubic symphysis following administration 85 mL of Omnipaque 350 intravenous contrast. Sagittal and coronal reformatted images were obtained on the technologist's workstation. Oral contrast: No This CT examination was performed using dose optimization techniques as appropriate, variously including the following: *Automated exposure control *Adjustment of mA and/or kV according to patient size (this includes techniques or standardized protocols for targeted exams where dose is matched to indication/reason for exam; i.e. extremities or head) *Use of iterative reconstruction technique DLP: 455 mGy-cm FINDINGS: LUNG BASES: There is mild asymmetry of the chest wall. The lung bases are clear. The heart size is normal. LIVER, GALLBLADDER, AND BILIARY TREE: The liver is normal in size, shape, and diffuse attenuation. No focal hepatic lesion or biliary ductal dilatation is present. The gallbladder is unremarkable with no evidence of radiopaque gallstones, gallbladder wall thickening, or obvious pericholecystic inflammatory changes. PANCREAS: The pancreas is slightly thickened and edematous. There is diffuse peripancreatic haziness and fluid collection consistent with acute pancreatitis. There is no suspicion for pancreatic necrosis. The fluid extends into the bilateral paracolic gutter. SPLEEN: Unremarkable. ADRENAL GLANDS: Unremarkable. KIDNEYS AND URETERS: The kidneys are normal in size, shape, and attenuation. No hydronephrosis, hydroureter, or calculi seen. No perinephric stranding. BLADDER: Unremarkable. GASTROINTESTINAL TRACT: There is scattered stool and gas seen throughout the colon without any significant distention. There is nonspecific mild mural thickening involving the splenic flexure and descending colon. The small bowel loops are normal caliber. There is no free air or free fluid seen. ABDOMINAL WALL: No significant hernia is appreciated. LYMPH NODES: There are small periportal lymph nodes with the largest lymph nodes measuring 1.6 x 0.7 cm. No additional lymph node seen. VASCULAR: Unremarkable. PELVIC VISCERA: The prostate gland is normal size. There is moderate to large amount of free fluid. OSSEOUS STRUCTURES: There is no lytic or sclerotic process seen. CT/CT abdomen pelvis w con IMPRESSION: Acute pancreatitis with peripancreatic moderate fluid collection extending into the pelvis. There is no evidence of pancreatic necrosis. Diffuse hepatic steatosis without any focal lesion. . The findings are similar to previous study 07/23/2020.
--- NOTE | ~2020-10-19 | XR_ITS ---
EXAMINATION: XR CHEST CLINICAL INFORMATION: Weakness, shortness of breath, rule out pneumonia COMPARISON: 07/23/2020 TECHNIQUE: Frontal view of the chest was obtained. FINDINGS: Cardiac leads overlie the chest. Lungs are clear. No consolidation, pneumothorax, or pleural effusion. Cardiac and mediastinal contours are normal. Pulmonary vasculature is unremarkable. No acute osseous abnormalities. XR/XR chest 1V IMPRESSION: No acute pulmonary findings. No evidence of pneumonia.
[2020-10-19] MEDS: LORazepam 2 MG/ML VIAL IVPUSH ×2 (06:22→07:15)
--- NOTE | 2020-10-19 06:34 | ECG_ITS ---
Test Reason : WITHDRAWL Blood Pressure : / mmHG Vent. Rate : 129 BPM Atrial Rate : 129 BPM P-R Int : 144 ms QRS Dur : 080 ms QT Int : 310 ms P-R-T Axes : 050 076 033 degrees QTc Int : 454 ms Sinus tachycardia Nonspecific ST abnormality Abnormal ECG When compared with ECG of 23-JUL-2020 11:48, ST now depressed in Anterior leads Referred By: Jarrett Roe Electronically Signed By:JIMENEZ COREY MD
--- NOTE | 2020-10-19 06:36 | PC.NURSE ---
at bedside for primary eval. Pt medicated with 2 mg of Ativan IVP per verbal order @ 0620 by Onesimo Manriquez RN.
[2020-10-19] MEDS: 0.9 % Sodium Chloride 1,000 ML 999 ML IV ×2 (06:37→10:07)
--- NOTE | 2020-10-19 06:44 | PC.NURSE ---
laboratory technical specialist at bedside for EKG. Labs and Covid obtained by this RN. Plan for Pheno protocol, pt 77.4 kg via bedscale. Pt vomiting, medicated with Zofran. CXR at bedside.
[2020-10-19] MEDS: ondansetron HCL 4 MG/2 ML VIAL IVPUSH ×3 (06:50→15:09)
[2020-10-19 06:52] LABS: Basophils Percent Auto 0.2 % (0-2); Hematocrit 46.6 % (42-52); Hemoglobin 16.6 g/dl (14.0-18.0); Imm Gran Abs Auto 0.02 X10*3/uL (0.00-0.03); Imm Gran Pct Auto 0.2 % (0.0-0.4); Lymphocytes Absolute Auto 0.4 X10*3/uL (1.2-4.9); Lymphocytes Percent Auto 4.5 % (20-40); MANUAL DIFF FLAG SCAN; Mean Corpuscular HGB Conc 35.6 g/dl (31.0-36.0); Mean Corpuscular Hemoglobin 33.4 pg (27.0-33.0); Mean Corpuscular Volume 93.8 fL (80-98); Monocytes Absolute Auto 0.9 X10*3/uL (0.1-1.2); Monocytes Percent Auto 9.6 % (2-11); Neutrophils Absolute Auto 7.9 X10*3/uL (2.0-8.3); Neutrophils Percent Auto 85.5 % (45-73); Platelet Count 138 X10*3/uL (160-400); Red Blood Count 4.97 X10*6/uL (4.60-5.80); Red Cell Distribution Width 12.9 % (11.0-16.0); SCAN SMEAR FLAG 1; White Blood Count 9.2 X10*3/uL (4.8-10.8)
--- NOTE | 2020-10-19 06:52 | ED_ITS ---
HPI - General Adult General Chief complaint: ETOH/Substance Use Stated complaint: ALCOHOL WITHDRAWAL Time Seen by Provider: 10/19/20 06:33 Source: patient and EMS Mode of arrival: EMS Limitations: no limitations History of Present Illness HPI narrative: 40-year-old male who presents emergency department for evaluation of alcohol withdrawal. The patient states drinks alcohol 4 to 5 times a week. He states that recently he has been drinking 8 vodka nips and beer. His last drink was yesterday mid day. He states this morning he developed nausea, vomiting and was shaking uncontrollably. He also developed diffuse, constant, sharp, abdominal pain which is 8/10 at its worst. Patient also complains nausea and vomiting, he denies hematemesis. Patient states he has had 2-3 hospitalizations in the past for alcohol withdrawal. He states he has been treated with both phenobarbital and with benzodiazepines for his withdrawal. Patient states he has also had pancreatitis secondary to his alcohol use disorder. The patient does smoke marijuana 3 times a week, he denies other drug use. He states that he lives alone. He denies any recent COVID 19 exposure. He denied fever, chills, cough, chest pain, shortness of breath, loss of sense of taste or smell or diarrhea. The patient was brought to emergency department by EMS and the paramedics gave the patient Versed 2 mg IV for his withdrawal symptoms. Related Data Previous Rx's Medication Instructions Recorded chlordiazepoxide HCl 50 mg PO Q6-8H PRN #12 cap 07/21/20 chlordiazepoxide HCl 50 mg PO Q8H PRN 3 Days #9 cap 07/23/20 ondansetron HCl [Zofran] 4 mg PO Q8H PRN #10 tab 07/23/20 Allergies Allergy/AdvReac Type Severity Reaction Status Date / Time azithromycin Allergy Unknown Verified 07/23/20 10:46 Review of Systems Review of Systems: Yes all other systems are reviewed and are negative PMFSH Past Medical History [facility] Narrative: Past medical history significant for alcohol use disorder, DTs, pancreatitis. The patient smokes 1/2 pack of cigarettes per day times 10 years, he drinks alcohol 5 times a week, he smokes marijuana 3 to 4 times a day. Medical History (Updated 10/19/20 @ 08:34 by Jarrett Roe MD) Alcohol abuse Pancreatitis Social History Social History Alcohol intake: current Alcohol intake frequency: 3 or more drinks per day Alcohol type: beer, wine and hard liquor Smoking Status: Unknown if ever smoked Smoked in Last 30 Days: No Use of substances other than those prescribed or required for medical reasons: Unknown Advance Directives: No Advance Directives Information Provided: No Physical Exam Vital Signs: Vital Signs: Last Vital Signs Temp 98.2 F 10/19/20 09:32 Pulse 110 H 10/19/20 10:10 Resp 16 10/19/20 10:10 BP 167/122 H 10/19/20 10:10 Pulse Ox 98 10/19/20 10:10 Body Mass Index 23.1 Const: General: cooperative, alert, awake and other (Diaphoretic, tachypneic, tremulous, ) Orientation/consciousness: oriented to person and oriented to place Limitations: no limitations HENMT: Head: Yes normal to inspection, Yes normocephalic and Yes atraumatic Ears: external ears normal General nose exam: Normal external nose present Face and sinus: Yes normal facial exam Mouth: Abnormal oral and palatal mucosa present (Very dry mucous membranes) Throat: Yes posterior oropharynx normal Eyes: Periorbital: periorbital findings normal Eyelids: Yes eyelids normal Conjunctivae: conjunctivae normal Sclerae: sclerae normal Corneas: corneas normal Pupils: Equal, round and reactive pupils present Direct Op hthalmoscopy: normal light reflex Neck: Neck: Yes full ROM, Yes no lymphadenopathy, Yes no meningeal signs, Yes trachea midline and Yes supple Chest: Chest palpation & inspection: normal inspection of the chest and normal palpation of entire chest wall Resp: Effort & Inspection: able to speak in complete sentences and tachypneic Auscultation: clear to auscultation bilaterally Cardio: Rate: tachycardic Rhythm: regular rhythm Heart sounds: S1 normal heart sound present, S2 normal heart sound present and no murmurs GI: Inspection: Yes normal to inspection Palpation (GI): Soft to palpation, Tenderness to palpation present (GI) ([id number] diffuse tenderness), no guarding, not rigid and No hepatosplenomegaly present : General: Yes no CVA tenderness Back/Spine/Pelvis: Back: no CVA tenderness Cervical Spine: normal cervical lordosis Thoracic/Lumbar Spine: thoracic and lumbar spine normal to inspection Skin: Lesions: no lesions Rashes: no rashes Wounds: no wounds Neuro: General: oriented to person, oriented to place and no meningeal signs Cranial nerves: Yes CN's II-XII intact bilaterally and Yes Equal, round and reactive pupils present Cognition (Neuro): normal cognition Motor exam (neuro): 5/5 motor strength present throughout Extrem: General: Yes normal to inspection and Yes full ROM Psych: Appearance: well kempt Mental Status: mental status grossly normal Speech and movement: Normal speech and movement present Affect: normal affect Attitude: cooperative Thought process: Normal thought process present Thought content: Normal thought content present Course Course Course Narrative: 40-year-old male with history of alcohol use disorder and delirium tremors who presents to the emergency department for evaluation of withdrawal symptoms. Patient drinks alcohol 5 times a week, he last drank alcohol yesterday mid afternoon. On presentation, the patient was diaphoretic, tachypneic, and tachycardic. Vital signs revealed a blood pressure of 170/122, pulse of 140 and respiratory rate of 30. O2 saturation was 96% on room air. Exam also revealed diffuse abdominal tenderness. The patient did receive Versed 2 mg IV EN route to the hospital, he was given Ativan 2 mg IV for his withdrawal and Zofran 4 mg IV for his nausea and vomiting. He was also ordered to get normal saline x1 L. He was ordered to get the phenobarbital protocol. I did order CBC, CMP, lipase, alcohol level, urine tox screen. 0831: The patient did get some improvement with his 1st dose phenobarbital and Ativan IV. the patient's laboratory evaluation revealed a low platelet count of a 163706, elevated AST and ALT of 189 and 116. patient's lipase was significantly elevated at 1692 suggesting that he has acute pancreatitis. Alcohol level was 26. the gastroccult test of the patient's emesis was positive which I think is consistent with acute alcoholic gastritis. Patient's COVID-19 test was negative. The patient will be kept NPO. I will discuss admission with the covering hospitalist. 0840: I did discuss the patient's presentation with the covering hospitalist, Dr. Taylor. After this discussion, the patient was ordered to get Protonix 80 mg IV and a Protonix drip, CT scan of the abdomen pelvis with IV contrast to rule out necrosis, abscess, phlegmon. The patient will be admitted for further management. Medical Decision Making Lab Data Result diagrams: 10/19/20 06:41 10/19/20 06:41 Labs: Lab Results 10/19/20 10/19/20 10/19/20 Range/Units 06:41 06:41 06:41 WBC 9.2 (4.8-10.8) X10*3/uL RBC 4.97 (4.60-5.80) X10*6/uL Hgb 16.6 (14.0-18.0) g/dl Hct 46.6 (42-52) % MCV 93.8 (80-98) fL MCH 33.4 H (27.0-33.0) pg MCHC 35.6 (31.0-36.0) g/dl RDW 12.9 (11.0-16.0) % Plt Count 138 L (160-400) X10*3/uL MPV 9.0 L (9.4-12.4) fL Immature Gran % (Auto) 0.2 (0.0-0.4) % Neut % (Auto) 85.5 H (45-73) % Lymph % (Auto) 4.5 L (20-40) % Spink % (Auto) 9.6 (2-11) % Eos % (Auto) 0.0 (0-4) % Baso % (Auto) 0.2 (0-2) % Lymph # (Auto) 0.4 L (1.2-4.9) X10*3/uL Spink # (Auto) 0.9 (0.1-1.2) X10*3/uL Eos # (Auto) 0.0 (0.0-0.4) X10*3/uL Baso # (Auto) 0.0 (0.0-0.2) X10*3/uL Abs Immat Gran (auto) 0.02 (0.00-0.03) X10*3/uL Absolute Neuts (auto) 7.9 (2.0-8.3) X10*3/uL Absolute Nucleated RBC 0.000 (0.0-0.012) X10*3/uL Nucleated RBC % (auto) 0.0 (0.0-0.2) /100WBC Smear Tech's Comments VERIFIED PT (10.8-13.0) SEC INR (0.9-1.1) APTT (24.1-38.0) SEC Sodium 144 (135-145) mmol/L Potassium 3.4 (3.3-5.1) mmol/L Chloride 101 (96-108) mmol/L Carbon Dioxide 23 (22-29) mmol/L Anion Gap 23 H (12-20) BUN 10 (9-16) mg/dL Creatinine 0.80 (0.5-1.4) mg/dL Estim Creat Clear Calc 134.3 Estimated GFR > 60 Random Glucose 112 (60-115) mg/dL Calcium 7.9 L (8.4-10.2) mg/dL Total Bilirubin 1.2 H (0.0-1.0) mg/dL AST 189 H (5-37) U/L ALT 116 H (0-40) U/L Alkaline Phosphatase 84 D (39-117) U/L Total Protein 6.6 (6.5-8.0) g/dL Albumin 3.9 (3.5-5.0) g/dL Lipase (8-78) U/L Gastric Occult Blood (NEG) Ethyl Alcohol mg/dL COVID-19 (GUS) Negative (Negative) COVID-19 Clin Com See Note 10/19/20 10/19/20 10/19/20 Range/Units 06:41 06:41 06:41 WBC (4.8-10.8) X10*3/uL RBC (4.60-5.80) X10*6/uL Hgb (14.0-18.0) g/dl Hct (42-52) % MCV (80-98) fL MCH (27.0-33.0) pg MCHC (31.0-36.0) g/dl RDW (11.0-16.0) % Plt Count (160-400) X10*3/uL MPV (9.4-12.4) fL Immature Gran % (Auto) (0.0-0.4) % Neut % (Auto) (45-73) % Lymph % (Auto) (20-40) % Spink % (Auto) (2-11) % Eos % (Auto) (0-4) % Baso % (Auto) (0-2) % Lymph # (Auto) (1.2-4.9) X10*3/uL Spink # (Auto) (0.1-1.2) X10*3/uL Eos # (Auto) (0.0-0.4) X10*3/uL Baso # (Auto) (0.0-0.2) X10*3/uL Abs Immat Gran (auto) (0.00-0.03) X10*3/uL Absolute Neuts (auto) (2.0-8.3) X10*3/uL Absolute Nucleated RBC (0.0-0.012) X10*3/uL Nucleated RBC % (auto) (0.0-0.2) /100WBC Smear Tech's Comments PT 13.4 H (10.8-13.0) SEC INR 1.1 (0.9-1.1) APTT 25.3 (24.1-38.0) SEC Sodium (135-145) mmol/L Potassium (3.3-5.1) mmol/L Chloride (96-108) mmol/L Carbon Dioxide (22-29) mmol/L Anion Gap (12-20) BUN (9-16) mg/dL Creatinine (0.5-1.4) mg/dL Estim Creat Clear Calc Estimated GFR Random Glucose (60-115) mg/dL Calcium (8.4-10.2) mg/dL Total Bilirubin (0.0-1.0) mg/dL AST (5-37) U/L ALT (0-40) U/L Alkaline Phosphatase (39-117) U/L Total Protein (6.5-8.0) g/dL Albumin (3.5-5.0) g/dL Lipase 1692 H (8-78) U/L Gastric Occult Blood (NEG) Ethyl Alcohol 26 mg/dL COVID-19 (GUS) (Negative) COVID-19 Clin Com 10/19/20 Range/Units 07:22 WBC (4.8-10.8) X10*3/uL RBC (4.60-5.80) X10*6/uL Hgb (14.0-18.0) g/dl Hct (42-52) % MCV (80-98) fL MCH (27.0-33.0) pg MCHC (31.0-36.0) g/dl RDW (11.0-16.0) % Plt Count (160-400) X10*3/uL MPV (9.4-12.4) fL Immature Gran % (Auto) (0.0-0.4) % Neut % (Auto) (45-73) % Lymph % (Auto) (20-40) % Spink % (Auto) (2-11) % Eos % (Auto) (0-4) % Baso % (Auto) (0-2) % Lymph # (Auto) (1.2-4.9) X10*3/uL Spink # (Auto) (0.1-1.2) X10*3/uL Eos # (Auto) (0.0-0.4) X10*3/uL Baso # (Auto) (0.0-0.2) X10*3/uL Abs Immat Gran (auto) (0.00-0.03) X10*3/uL Absolute Neuts (auto) (2.0-8.3) X10*3/uL Absolute Nucleated RBC (0.0-0.012) X10*3/uL Nucleated RBC % (auto) (0.0-0.2) /100WBC Smear Tech's Comments PT (10.8-13.0) SEC INR (0.9-1.1) APTT (24.1-38.0) SEC Sodium (135-145) mmol/L Potassium (3.3-5.1) mmol/L Chloride (96-108) mmol/L Carbon Dioxide (22-29) mmol/L Anion Gap (12-20) BUN (9-16) mg/dL Creatinine (0.5-1.4) mg/dL Estim Creat Clear Calc Estimated GFR Random Glucose (60-115) mg/dL Calcium (8.4-10.2) mg/dL Total Bilirubin (0.0-1.0) mg/dL AST (5-37) U/L ALT (0-40) U/L Alkaline Phosphatase (39-117) U/L Total Protein (6.5-8.0) g/dL Albumin (3.5-5.0) g/dL Lipase (8-78) U/L Gastric Occult Blood POS (NEG) Ethyl Alcohol mg/dL COVID-19 (GUS) (Negative) COVID-19 Clin Com ECG Data Attestation: I personally reviewed and interpreted this ECG as follows: Interpretation: 0635: Sinus tachycardia with a rate of 129, normal MO, QRS and QTC intervals, no ST segment elevation or depression, no T-wave abnormalities, no old EKG for comparison. This is an abnormal EKG secondary to the tachycardia. Critical Care Time Critical Care Time Critical Care Time: Yes Total Critical Care Time: 40 Attestation: Critical Care: The patient was critically ill with a high probability of imminent or life threatening deterioration. I spent greater than 30 minutes of discontinuous time evaluating the patient,delivering critical care at the bedside, discussing and evaluating pertinent data with consultants. Critical care time does not include time spent performing separately billable procedures or teaching. Total time spent performing critical care was 40 minutes. Discharge Plan Discharge Clinical Impression: Alcohol withdrawal syndrome Qualifiers: Complication of substance-induced condition: uncomplicated Qualified Code(s): F10.230 - Alcohol dependence with withdrawal, uncomplicated Acute alcoholic pancreatitis Qualifiers: Acute pancreatitis complication: unspecified Qualified Code(s): K85.20 - Alcohol induced acute pancreatitis without necrosis or infection Acute alcoholic gastritis Qualifiers: Gastritis bleeding: with bleeding Qualified Code(s): K29.21 - Alcoholic gastritis with bleeding Patient Disposition: Admitted As Inpatient
[2020-10-19 07:02] LABS: INTERNATIONAL NORM RATIO 1.1 (0.9-1.1); Prothrombin Time 13.4 SEC (10.8-13.0)
[2020-10-19 07:05] LABS: Partial Thromboplastin Time 25.3 SEC (24.1-38.0)
[2020-10-19 07:08] LABS: COVID-19 Test Negative (Negative)
[2020-10-19 07:11] LABS: Ethanol 26 mg/dL
[2020-10-19] MEDS: PHENobarbitaL sodium 130 MG/ML VIAL 464 MG IM (07:17)
[2020-10-19 07:18] LABS: Alanine Aminotransferase 116 U/L (0-40); Albumin Level 3.9 g/dL (3.5-5.0); Alkaline Phosphatase 84 U/L (39-117); Anion Gap 23 (12-20); Aspartate Amino Transferase 189 U/L (5-37); Bilirubin Total 1.2 mg/dL (0.0-1.0); Blood Urea Nitrogen 10 mg/dL (9-16); Carbon Dioxide 23 mmol/L (22-29); Chloride 101 mmol/L (96-108); Creatinine Clr Calc Pharmacy 134.3; Estimated Glomerular Filt Rate > 60; Glucose Random 112 mg/dL (60-115); Potassium 3.4 mmol/L (3.3-5.1); Sodium 144 mmol/L (135-145); Total Protein 6.6 g/dL (6.5-8.0)
[2020-10-19 07:28] LABS: Calcium 7.9 mg/dL (8.4-10.2)
[2020-10-19 07:37] LABS: GASOB Int Neg Ctl Valid YES; GASOB Int Pos Ctl Valid YES; Occult Blood Gastric POS (NEG)
[2020-10-19 07:42] LABS: SLIDE REVIEW VERIFIED
[2020-10-19 07:49] LABS: Lipase 1692 U/L (8-78)
--- NOTE | 2020-10-19 08:17 | PC.NURSE ---
pt has been tremulous and vomiting. He was medicated for nausea and withdrawal SX. Pt vomited moderate amount of coffee ground emesis, sample sent to lab, Pt was advised to to eat or drink, has disregarded and is drinking juice from home. he remains tremulous, also has slow speech but is awake and oriented.
[2020-10-19] MEDS: Pantoprazole Sodium 40 MG/10 ML VIAL 80 MG IVPUSH (10:04)
--- NOTE | 2020-10-19 10:12 | PC.NURSE ---
pt reports pain, md to bedside, pt to be medicated for pain.
--- NOTE | 2020-10-19 10:54 | P.HPHOSP_ITS ---
History of Present Illness Date of Service: 10/19/20 Chief Complaint: multiple complaints This is a 40-year-old male with no significant past medical history with the exception of alcohol abuse and dependence who presents to the hospital with multiple complaints. Patient reports that he does drink daily roughly 3-4 shots/beers but due to the recent he has been drinking in excess of 10-12 drinks for the last 4 to 5 days. He reports that he only had 1 drink yesterday and in fact currently feels better than he did yesterday. He reports significant abdominal pain. He denies any hematemesis but while in the emergency room was noted to have coffee-ground emesis. He denies any rectal bleeding. He does endorse prior withdrawal symptoms, unsure if he has ever had a seizure. While in the ED, patient was noted to be in severe alcohol withdrawal with elevated blood pressures and tachycardia as well as severe tremors. He also had an episode of coffee-ground emesis. His lipase was elevated and his CT scan was consistent with acute pancreatitis. He was started on phenobarbital per protocol, given IV Protonix, IV fluids, IV Ativan with some improvement in his symptoms and subsequently admission was requested. Review of Systems Review of Systems: General - denies fevers or chills, denies weakness or fatigue HEENT -denies blurred vision, denies headache, denies sore throat Cardiovascular - denies chest pain or palpitations, denies edema Respiratory - denies shortness of breath, coughing, wheezing Gastrointestinal - diffuse abdominal pain, reports n/v; denies hematemesis; + coffee grounds; denies rectal bleeding / melena - denies flank pain, denies dysuria, denies frequency or urgency Musculoskeletal - +generalized aches/pains; Neurological - denies any focal weakness or numbness; +tremors Skin, denies any bruising or redness Psychiatric - denies any suicidal ideation, hallucinations, homicidal ideation Endocrinology - denies intolerance to hot / cold temperatures [facility] Medical History (Updated 10/19/20 @ 11:22 by Calvin Taylor MD) Alcohol abuse Alcohol withdrawal Pancreatitis Family History (Updated 10/19/20 @ 11:14 by Calvin Taylor MD) Other Hypertension Surgical History (Updated 10/19/20 @ 11:15 by Calvin Taylor MD) No pertinent past surgical history Social History Alcohol intake: current Alcohol intake frequency: 3 or more drinks per day Alcohol type: beer, wine and hard liquor Smoking Status: Unknown if ever smoked Smoked in Last 30 Days: No Use of substances other than those prescribed or required for medical reasons: Unknown Advance Directives: No Advance Directives Information Provided: No Meds Allergies Allergy/AdvReac Type Severity Reaction Status Date / Time azithromycin Allergy Unknown Verified 07/23/20 10:46 Active Medications: Current Medications Generic Name Dose Route Start Last Admin Trade Name Freq PRN Reason Stop Dose Admin Pantoprazole Sodium 80 mg/ 100 mls @ 10 mls/hr 10/19/20 08:45 Sodium Chloride IV .Q10H ANNIE 8 MG/HR Medication 1 each 10/19/20 09:00 No Benzodiazepines MISCELLANE DAILY [facility] Protocol Phenobarbital 60 mg 10/19/20 21:00 Phenobarbital 30 Mg Tablet PO 10/21/20 09:01 BID ANNIE Phenobarbital 30 mg 10/21/20 21:00 Phenobarbital 30 Mg Tablet PO 10/23/20 09:01 BID ANNIE Phenobarbital 30 mg 10/23/20 21:00 Phenobarbital 30 Mg Tablet PO 10/24/20 09:01 DAILY [facility] Phenobarbital Sodium 349 mg 10/19/20 10:00 Phenobarbital Sodium 130 Mg/Ml Vial IM 10/19/20 13:01 Q3H [facility] Physical Exam Vital Signs and Narrative: Vital Signs: Last Vital Signs Temp 98.2 F 10/19/20 09:32 Pulse 110 H 10/19/20 10:10 Resp 16 10/19/20 10:10 BP 167/122 H 10/19/20 10:10 Pulse Ox 98 10/19/20 10:10 Body Mass Index 23.1 Const: Other: Constitutional - Awake and Alert, No apparent distress Eyes - PERRLA, EOMI Cardiovascular - S1S2, tachycardic around 110 Respiratory - Normal lung expansion, Normal respiratory effort, No respiratory distress, CTA bilaterally Gastrointestinal - diffuse abdominal pain without guarding / rebound - No CVA tenderness Extremities - no calf tenderness bilaterally, no swelling Musculoskeletal - Normal inspection, normal ROM Skin - Warm/Dry Neurological - Alert & oriented x3, No focal deficit; +tremors Psychological - Appropriate affect Results Labs CBC and Chem 7: 10/19/20 06:41 10/19/20 06:41 Labs: Laboratory Results - last 24 hr 10/19/20 10/19/20 10/19/20 06:41 06:41 06:41 MCV 93.8 MCH 33.4 H MCHC 35.6 RDW 12.9 Plt Count 138 L MPV 9.0 L Immature Gran % (Auto) 0.2 Neut % (Auto) 85.5 H Lymph % (Auto) 4.5 L Boyle % (Auto) 9.6 Eos % (Auto) 0.0 Baso % (Auto) 0.2 Lymph # (Auto) 0.4 L Boyle # (Auto) 0.9 Eos # (Auto) 0.0 Baso # (Auto) 0.0 Abs Immat Gran (auto) 0.02 Absolute Neuts (auto) 7.9 Absolute Nucleated RBC 0.000 Nucleated RBC % (auto) 0.0 Smear Tech's Comments VERIFIED PT INR APTT Anion Gap 23 H Estim Creat Clear Calc 134.3 Estimated GFR > 60 Random Glucose 112 Calcium 7.9 L Total Bilirubin 1.2 H AST 189 H ALT 116 H Alkaline Phosphatase 84 D Total Protein 6.6 Albumin 3.9 Lipase Gastric Occult Blood Ethyl Alcohol COVID-19 (GUS) Negative COVID-[facility] Clin Com See Note 10/19/20 10/19/20 10/19/20 06:41 06:41 06:41 MCV MCH MCHC RDW Plt Count MPV Immature Gran % (Auto) Neut % (Auto) Lymph % (Auto) Boyle % (Auto) Eos % (Auto) Baso % (Auto) Lymph # (Auto) Boyle # (Auto) Eos # (Auto) Baso # (Auto) Abs Immat Gran (auto) Absolute Neuts (auto) Absolute Nucleated RBC Nucleated RBC % (auto) Smear Tech's Comments PT 13.4 H INR 1.1 APTT 25.3 Anion Gap Estim Creat Clear Calc Estimated GFR Random Glucose Calcium Total Bilirubin AST ALT Alkaline Phosphatase Total Protein Albumin Lipase 1692 H Gastric Occult Blood Ethyl Alcohol 26 COVID-19 (GUS) [facility] Clin Com 10/19/20 07:22 MCV MCH MCHC RDW Plt Count MPV Immature Gran % (Auto) Neut % (Auto) Lymph % (Auto) Boyle % (Auto) Eos % (Auto) Baso % (Auto) Lymph # (Auto) Boyle # (Auto) Eos # (Auto) Baso # (Auto) Abs Immat Gran (auto) Absolute Neuts (auto) Absolute Nucleated RBC Nucleated RBC % (auto) Smear Tech's Comments PT INR APTT Anion Gap Estim Creat Clear Calc Estimated GFR Random Glucose Calcium Total Bilirubin AST ALT Alkaline Phosphatase Total Protein Albumin Lipase Gastric Occult Blood POS Ethyl Alcohol COVID-19 (GUS) COVID-19 Clin Com Imaging Radiologist's Impressions: Impressions Chest X-Ray 10/19/20 06:34 IMPRESSION: No acute pulmonary findings. No evidence of pneumonia. Assessment and Plan (1) Alcohol withdrawal syndrome: Qualifiers: Complication of substance-induced condition: uncomplicated Qualified C ode(s): F10.230 - Alcohol dependence with withdrawal, uncomplicated Status: Acute (2) Acute alcoholic pancreatitis: Qualifiers: Acute pancreatitis complication: no infection or necrosis Qualified Code(s): K85.20 - Alcohol induced acute pancreatitis without necrosis or infection Status: Acute (3) Acute alcoholic gastritis: Qualifiers: Gastritis bleeding: with bleeding Qualified Code(s): K29.21 - Alcoholic gastritis with bleeding Status: Acute This is a 40-year-old male with a past medical history significant for alcohol abuse and dependence with multiple complications in the past including prior withdrawal as well as pancreatitis who now presents to the hospital after a 4 to five-day binge of heavy alcohol use. He is noted to be in alcohol withdrawal with associated alcohol induced pancreatitis and presumably alcoholic gastritis. 1. Alcohol abuse and dependence with withdrawal Phenobarb per protocol Alcohol cessation has been strongly encouraged Monitor his electrolytes 2. Alcoholic pancreatitis Bowel rest for the time being LR at 150 cc per hour IV morphine for pain control 3. Coffee-ground emesis x1 in the ED Presumably secondary to alcoholic gastritis Trend H&H NPO for the time being next plan will consult Gastroenterology IV Protonix 4. Elevated blood pressure and tachycardia Improving with phenobarb Suspect secondary to his alcohol withdrawal Observe blood pressure, may need antihypertensives in the future Full Code Nominates Sivan Gee, his girlfriend as his healthcare proxy DVT ppx - Mechanical due to [place] ground emesis
[2020-10-19] MEDS: PHENobarbitaL sodium 130 MG/ML VIAL 349 MG IM ×2 (11:05→14:31)
[2020-10-19] MEDS: Pantoprazole Sodium 80 MG in 0.9 % Sodium Chloride 80 ML 10 MG IV (11:06)
[2020-10-19] MEDS: Morphine Sulfate 4 MG/ML CARTRIDGE IVPUSH ×2 (11:06→15:08)
--- NOTE | 2020-10-19 11:18 | PC.NURSE ---
pt resting quietly awaiting room assignment. He has asked for food/fluid. pt informed he is NPO, but has asked for water and fluids. Will continue to remind of NPO status.
[2020-10-19 11:44] LABS: Hematocrit 41.6 % (42-52); Hemoglobin 15.1 g/dl (14.0-18.0)
[2020-10-19] MEDS: Lactated Ringers 1,000 ML 150 ML IVCONT ×2 (12:34→19:14)
[2020-10-19] MEDS: cloNIDine HCL 0.1 MG TABLET PO (12:43)
--- NOTE | 2020-10-19 13:48 | PC.NURSE ---
pt has been resting quietly, sleeping at times. He wakes to verbal stimuli and returns easily to sleep.
[2020-10-19] MEDS: cloNIDine 0.2 MG PATCH.TDWK TRANSDERMA (15:07)
[2020-10-19 17:52] LABS: Hematocrit 43.7 % (42-52); Hemoglobin 15.4 g/dl (14.0-18.0)
[2020-10-19] MEDS: Montelukast Sodium 10 MG TABLET PO (21:18)
[2020-10-19] MEDS: Cyclobenzaprine HCl 10 MG TABLET PO (21:18)
[2020-10-19] MEDS: PHENobarbitaL 30 MG TABLET 60 MG PO (21:18)
[2020-10-19 22:40] LABS: Hemoglobin 15.1 g/dl (14.0-18.0)
[2020-10-20 00:20] LABS: Amphetamine Screen Urine Not Detected (Not Detect); Barbiturates, Urine POSITIVE (Not Detect); Benzodiazepines Screen Urine POSITIVE (Not Detect); Cannabinoid Screen Urine Not Detected (Not Detect); Cocaine Screen Urine Not Detected (Not Detect); Opiate Screen Urine POSITIVE (Not Detect); Phencyclidine Screen Urine Not Detected (Not Detect)
[2020-10-20] MEDS: Lactated Ringers 1,000 ML 150 ML IVCONT ×4 (01:39→22:27)
[2020-10-20 03:27] VITALS: BP 144/108; PULSE 102; RESP 20; TEMP 36.3; O2SAT 96
[2020-10-20] MEDS: Pantoprazole Sodium 40 MG/10 ML VIAL IVPUSH ×2 (05:57→16:16)
[2020-10-20 06:58] VITALS: BP 153/112; PULSE 101; RESP 20; TEMP 36.4; O2SAT 96
[2020-10-20 08:01] LABS: Mean Corpuscular Volume 92.8 fL (80-98); Mean Platelet Volume 10.2 fL (9.4-12.4); PLT CLUMP 1
[2020-10-20 08:02] LABS: Hematocrit 41.5 % (42-52); Hemoglobin 14.8 g/dl (14.0-18.0); Mean Corpuscular HGB Conc 35.7 g/dl (31.0-36.0); Mean Corpuscular Hemoglobin 33.1 pg (27.0-33.0); Red Blood Count 4.47 X10*6/uL (4.60-5.80); Red Cell Distribution Width 12.7 % (11.0-16.0); White Blood Count 7.6 X10*3/uL (4.8-10.8)
[2020-10-20 08:20] LABS: Anion Gap 14 (12-20); Blood Urea Nitrogen 7 mg/dL (9-16); Calcium 7.8 mg/dL (8.4-10.2); Carbon Dioxide 29 mmol/L (22-29); Chloride 96 mmol/L (96-108); Creatinine Clr Calc Pharmacy 170.6; Estimated Glomerular Filt Rate > 60; Glucose Random 89 mg/dL (60-115); Platelet Count 98 X10*3/uL (160-400); Potassium 3.3 mmol/L (3.3-5.1); Sodium 136 mmol/L (135-145)
[2020-10-20] MEDS: PHENobarbitaL 30 MG TABLET 60 MG PO ×2 (08:27→20:21)
[2020-10-20 08:37] LABS: Magnesium 1.2 mg/dL (1.6-2.6)
--- NOTE | 2020-10-20 09:31 | MHC.CM.PN ---
PATIENT LIVES WITH HIS GIRLFRIEND. HIS PCP IS DR CHLOE ROBLERO OF [place]. UPDATE MADE IN QUICK TASK OF [employer]. THERE IS A BRACE ORDERED FOR PATIENT'S PREVIOUS FEMUR FRACTURE. HE IS INTERESTED IN GOING THROUGH THE STEPS OF RECOVERY, HE HAS BEEN THROUGH THIS PREVIOUSLY AND FEELS HE CAN BE SUCCESSFUL WITH TREATMENT. RECOVERY SUPPORT RN MADE AWARE AND WILL VISIT ON THURSDAY IF PATIENT IS STILL HERE. CASE MANAGEMENT FOLLOWING FOR DISCHARGE NEEDS.
[2020-10-20] MEDS: Magnesium Sulfate/H2O 2 GM/50 ML PIGGYBACK IV (09:32)
--- NOTE | 2020-10-20 09:59 | HO.PM.IMPN ---
Subjective Subjective Date of Service: 10/20/20 Interval History: wants to try clears Cardiovascular Cardiovascular: Reports no additional cardiovascular complaints Respiratory Respiratory: Reports no additional respiratory complaints Physical Exam Vital Signs: Vital Signs: Last Vital Signs Temp 97.6 F 10/20/20 06:58 Pulse 101 H 10/20/20 06:58 Resp 20 10/20/20 06:58 BP 153/112 H 10/20/20 06:58 Pulse Ox 96 10/20/20 06:58 Body Mass Index 23.1 General: AO X 3, no acute distress Resp: CTA bilateral CVS: S1,S2,RRR GI: soft, tender, non distended Neuro: motor grossly intact Psych: appropriate affect Objective Data Current Medications Generic Name Dose Route Start Last Admin Trade Name Freq PRN Reason Stop Dose Admin Acetaminophen 650 mg 10/19/20 11:18 Acetaminophen 325 Mg Tablet PO Q6H PRN Pain, Mild (Pain Scale 1-3) Cyclobenzaprine HCl 10 mg 10/19/20 21:00 10/19/20 21:18 Cyclobenzaprine Hcl 10 Mg Tablet PO 10 mg BEDTIME ANNIE Administration Lactated Ringer's 1,000 mls @ 150 mls/hr 10/19/20 11:18 10/20/20 08:31 Lr IVCONT 150 mls/hr .Q6H40M ANNIE Administration Magnesium Sulfate 2 gm in 50 mls @ 25 mls/hr 10/20/20 09:14 10/20/20 09:32 IV 10/20/20 11:13 25 mls/hr ONCE ONE Administration Magnesium Oxide 400 mg 10/20/20 17:30 Magnesium Oxide 400 Mg Tablet PO BIDPC ANNIE Medication 1 each 10/19/20 09:00 No Benzodiazepines MISCELLANE DAILY ANNIE Protocol Montelukast Sodium 10 mg 10/19/20 21:00 10/19/20 21:18 Montelukast Sodium 10 Mg Tablet PO 10 mg BEDTIME ANNIE Administration Morphine Sulfate 4 mg 10/19/20 11:18 10/19/20 15:08 Morphine Sulfate 4 Mg/Ml Cartridge IVPUSH 4 mg Q4H PRN Administration Pain, Severe (Pain Scale 7-10) Ondansetron HCl 4 mg 10/19/20 11:18 10/19/20 15:09 Ondansetron Hcl 4 Mg/2 Ml Vial IVPUSH 4 mg Q8H PRN Administration Nausea and Vomiting Pantoprazole Sodium 40 mg 10/20/20 06:30 10/20/20 05:57 Pantoprazole Sodium 40 Mg/10 Ml Vial IVPUSH 40 mg [id number] [facility] Administration Pharmacy Consult 1 each 10/19/20 11:18 Consult Rx Perform Med Rec MISCELLANE ONCE PRN Consult order Phenobarbital 60 mg 10/19/20 21:00 10/20/20 08:27 Phenobarbital 30 Mg Tablet PO 10/21/20 09:01 60 mg BID ANNIE Administration Phenobarbital 30 mg 10/21/20 21:00 Phenobarbital 30 Mg Tablet PO 10/23/20 09:01 BID ANNIE Phenobarbital 30 mg 10/23/20 21:00 Phenobarbital 30 Mg Tablet PO 10/24/20 09:01 DAILY [facility] Sodium Chloride 3 ml 10/19/20 16:00 10/20/20 08:19 0.9 % Sodium Chloride Flush 3 Ml Syringe IVFLUSH Not Given QSHIFT [facility] Labs CBC & Chem 7: 10/20/20 07:41 10/20/20 07:41 Assessment and Plan (1) Alcohol withdrawal syndrome: Status: Acute (2) Acute alcoholic pancreatitis: Status: Acute (3) Acute alcoholic gastritis: Status: Acute Assessment and Plan: This is a 40-year-old male with a past medical history significant for alcohol abuse and dependence with multiple complications in the past including prior withdrawal as well as pancreatitis who now presents to the hospital after a 4 to five-day binge of heavy alcohol use. He is noted to be in alcohol withdrawal with associated alcohol induced pancreatitis and presumably alcoholic gastritis. Alcohol abuse and dependence with withdrawal Phenobarb per protocol Alcohol cessation has been strongly encouraged Monitor his electrolytes Alcoholic pancreatitis will start clears hypomagnesemia replace and monitor Coffee-ground emesis x1 in the ED Presumably secondary to alcoholic gastritis Trend H&H NPO for the time being next plan will consult Gastroenterology IV Protonix Elevated blood pressure and tachycardia Improving with phenobarb Suspect secondary to his alcohol withdrawal Observe blood pressure, may need antihypertensives in the future
[2020-10-20 11:25] VITALS: BP 160/110; PULSE 118; RESP 18; TEMP 37.1; O2SAT 98
[2020-10-20] MEDS: Nicotine 21 MG PATCH.TD24 TRANSDERMA (11:28)
[2020-10-20] MEDS: Morphine Sulfate 4 MG/ML CARTRIDGE IVPUSH ×3 (13:08→22:25)
[2020-10-20 16:00] VITALS: BP 158/109; PULSE 114; RESP 14; TEMP 37; O2SAT 97
--- NOTE | 2020-10-20 17:16 | PM.EVENT ---
Event Note Date of Service: 10/20/20 Event Note: GI Consult-Full note dictated Imp: EtOH-induced pancreatitis and hepatitis, as well as some self-limited UGI bleeding with associated coffee grounds emesis by his description. He has had no further signs of bleeding here and his Hgb has been stable. He reports that his abdominal pain has improved somewhat and he tolerated some liquids today. He has been using Diclofenac recently at home and also smokes, in addition to his alcohol use. He does describe frequent heartburn at home as well. His abdominal exam does reveal some diffuse tenderness and slight distention, although he does report that things have improved since admission. He describes passing flatus today. Diff dx: In regard to the bleeding, this is most likely from esophagitis, gastritis, and/or PUD. Rec: Continue PPI and F/U labs in AM, including LFT's, lipase, and CBC. Advance diet as his pain and labs improve. I advised him that we should do an EGD on Thursday if he is still here. Full consent has been obtained from him for this, including risks of bleeding and perforation. If he is discharged before that, he should go home with a Rx for omeprazole 40mg QD. I advised him of the need to avoid EtOH, Diclofenac, and all aspirin/NSAIDs senior living. I told him to set up an outpatient EGD through his PCP if we don't do it while he is an inpatient. Please let me know if he will be here Thursday and I will plan on keeping him NPO and schedule the endoscopy for some time on Thursday. D/W patient in detail and he is comfortable with this plan. Thanks.
[2020-10-20] MEDS: Magnesium Oxide 400 MG TABLET PO (18:06)
[2020-10-20 19:33] VITALS: BP 156/115; PULSE 108; RESP 15; TEMP 36.7; O2SAT 95
[2020-10-20] MEDS: Montelukast Sodium 10 MG TABLET PO (20:22)
[2020-10-20] MEDS: Cyclobenzaprine HCl 10 MG TABLET PO (20:22)
--- NOTE | 2020-10-20 20:38 | CONS_ITS ---
DATE OF SERVICE: 10/20/2020 REFERRING PHYSICIAN: Calvin Taylor MD REASON FOR CONSULTATION: Abdominal pain, coffee-grounds emesis, and pancreatitis. HISTORY OF PRESENT ILLNESS: This has been obtained from the patient and the medical record. The patient is a 40-year-old male with a long-standing history of alcohol abuse, who presents with abdominal pain and has been found to have pancreatitis based on his laboratories and CAT scan. He also describes several episodes of coffee-grounds emesis at home. He denies any hematemesis. Since hospitalization, he has had no further signs of bleeding. He does report that his abdominal pain has improved and he is passing some flatus today. He is urinating comfortably as well. He did start some clear liquids today and tolerated that. However, he still has some nausea and abdominal discomfort. He does report that the abdominal discomfort has improved to a degree since admission. He does describe a previous episode of pancreatitis from alcohol as well. He denies any liver disease nor episodes of jaundice as far as he can recall. He denies any known family history of liver disease nor pancreatitis. In addition to his alcohol at home, he is also using diclofenac recently and also smokes daily. He also describes frequent episodes of heartburn, but denies any dysphagia nor anorexia. He denies any melena nor hematochezia at home. MEDICATIONS: At home included albuterol inhaler, cyclobenzaprine, diclofenac, hydroxyzine, Zofran, and montelukast. His medications here in the hospital include acetaminophen p.r.n., cyclobenzaprine, magnesium, montelukast, morphine p.r.n., Nicoderm patch, Zofran, IV Protonix, phenobarbital. PAST MEDICAL HISTORY: Alcohol abuse. Previous history of pancreatitis. Asthma. He denies any history of heart disease, diabetes, stroke, nor renal disease. He has had knee surgery. SOCIAL HISTORY: Alcohol, tobacco as above. He is presently not working. FAMILY HISTORY: Noncontributory. REVIEW OF SYSTEMS: CONSTITUTIONAL: He has been feeling poorly at home in relation to the alcohol use and recent onset of his symptoms. SKIN: No rash. No pruritus. CARDIAC: No chest pain. PULMONARY: He does have some coughing and congestion, but no hemoptysis. GASTROINTESTINAL: As above. URINARY: No dysuria. No hematuria. PHYSICAL EXAMINATION: GENERAL: The patient is alert, cooperative male, in no distress. SKIN: Warm and dry. Nonjaundiced. HEENT: Anicteric sclerae. NECK: Supple. CARDIAC: Normal S1, S2. ABDOMEN: Soft and slightly distended. Bowel sounds are somewhat diminished, but present. There is no focal mass, rebound, or guarding. He does have some upper abdominal tenderness rather diffusely however. EXTREMITIES: Without edema. LABORATORY DATA: Normal electrolytes. BUN 7, creatinine 0.6, calcium 7.8, magnesium 1.2. LFTs from yesterday showed a total bilirubin of 1.2, AST 189, ALT 116, alkaline phosphatase 84. His lipase was 1692. In July 2020, his AST was 49 with ALT of 44. On this admission, his CAT scan of the abdomen and pelvis describes a normal-appearing liver without any sign of biliary disease or gallbladder disease. The pancreas appeared consistent with pancreatitis without signs of pancreatic necrosis. There is no splenomegaly. The GI tract appeared normal. Chest x-ray is described as normal. IMPRESSION: Given the patient's clinical history, he is clearly having some complications from his alcohol abuse. It appears some alcohol-induced hepatitis and pancreatitis. Both of these entities presently seem mild based on his current clinical appearance and workup. As such, I would continue supportive care. I would not advance his diet until we check followup laboratories tomorrow and be sure his abdominal pain is improving. From a GI bleeding standpoint, this also appears stable and I suspect represents possibilities such as esophagitis, a Renay-Young tear, gastritis, and/or peptic ulcer disease in relation to the vomiting, alcohol, tobacco, and NSAID use. He does not show any signs of active bleeding. At this point, I would continue current management with his IV PPI and followup laboratories in the morning including a liver profile, lipase, and CBC. I would advance his diet based on his abdominal pain and laboratory results. I did review with him that he should undergo upper endoscopy, which we could do on Thursday, if he is still here. I did advise him that it would be helpful to know exactly where the bleeding came from, so as to best to know how to treat him long-term. Full consent has been obtained for that including risks of bleeding and perforation. This will be done with monitored anesthesia care. If he is discharged before that, I did advise him that he should be sent home with a prescription for omeprazole 40 mg daily and continue to avoid all alcohol, and NSAIDs, including diclofenac long-term. If he does go home before we do the endoscopy, I did tell him to follow up with his PCP and then if need be, the PCP can arrange for an outpatient endoscopy with me. The patient was comfortable with this plan. Thank you for this consultation. MD GERALD Yang/MARCELLE / [id number] MTDD
[2020-10-21] VITALS (8 sets, daily range): BP systolic 130–159; BP diastolic 99–112; PULSE 99–123; RESP 16–20; TEMP 36.3–37.1; O2SAT 96–99
[2020-10-21] MEDS: LORazepam 2 MG/ML VIAL 1 MG IVPUSH (00:47)
[2020-10-21] MEDS: PHENobarbitaL 30 MG TABLET PO ×2 (02:06→21:31)
[2020-10-21] MEDS: PHENobarbitaL 30 MG TABLET 60 MG PO (05:47)
[2020-10-21] MEDS: Pantoprazole Sodium 40 MG/10 ML VIAL IVPUSH (05:58)
[2020-10-21] MEDS: Lactated Ringers 1,000 ML 150 ML IVCONT ×2 (06:01→12:02)
[2020-10-21 06:37] LABS: MANUAL DIFF FLAG NO
[2020-10-21 07:02] LABS: Basophils Percent Auto 0.3 % (0-2); Eosinophils Absolute Auto 0.1 X10*3/uL (0.0-0.4); Eosinophils Percent Auto 2.3 % (0-4); Hematocrit 35.3 % (42-52); Hemoglobin 13.2 g/dl (14.0-18.0); Imm Gran Abs Auto 0.02 X10*3/uL (0.00-0.03); Imm Gran Pct Auto 0.3 % (0.0-0.4); Lymphocytes Absolute Auto 0.8 X10*3/uL (1.2-4.9); Lymphocytes Percent Auto 13.5 % (20-40); Mean Corpuscular HGB Conc 37.4 g/dl (31.0-36.0); Mean Platelet Volume 10.8 fL (9.4-12.4); Monocytes Absolute Auto 0.6 X10*3/uL (0.1-1.2); Monocytes Percent Auto 9.5 % (2-11); Neutrophils Absolute Auto 4.6 X10*3/uL (2.0-8.3); Neutrophils Percent Auto 74.1 % (45-73); Red Blood Count 3.88 X10*6/uL (4.60-5.80); Red Cell Distribution Width 12.3 % (11.0-16.0); White Blood Count 6.2 X10*3/uL (4.8-10.8)
[2020-10-21 07:04] LABS: Platelet Count 96 X10*3/uL (160-400)
[2020-10-21 07:05] LABS: Alanine Aminotransferase 62 U/L (0-40); Albumin Level 3.5 g/dL (3.5-5.0); Alkaline Phosphatase 84 U/L (39-117); Aspartate Amino Transferase 99 U/L (5-37); Bilirubin Direct 1.1 mg/dL (0.0-0.5); Bilirubin Total 1.9 mg/dL (0.0-1.0); Total Protein 5.8 g/dL (6.5-8.0)
[2020-10-21 07:06] LABS: INTERNATIONAL NORM RATIO 1.2 (0.9-1.1); Prothrombin Time 14.3 SEC (10.8-13.0)
[2020-10-21 07:26] LABS: Anion Gap 12 (12-20); Blood Urea Nitrogen 5 mg/dL (9-16); Calcium 7.8 mg/dL (8.4-10.2); Carbon Dioxide 31 mmol/L (22-29); Chloride 91 mmol/L (96-108); Creatinine Clr Calc Pharmacy 182.2; Estimated Glomerular Filt Rate > 60; Glucose Fasting 111 mg/dL (60-99); Lipase 207 U/L (8-78); Magnesium 1.7 mg/dL (1.6-2.6); Potassium 2.7 mmol/L (3.3-5.1); Sodium 131 mmol/L (135-145)
--- NOTE | 2020-10-21 07:37 | PC.NURSE ---
Patient restless through the night. hallucinating after midnight. phenobarb 0900 dose given early with permission of hospitalist. no longer hallucinating this morning
--- NOTE | 2020-10-21 09:36 | HO.PM.IMPN ---
Subjective Subjective Date of Service: 10/21/20 Interval History: still with some pain and jittery Cardiovascular Cardiovascular: Reports no additional cardiovascular complaints Gastrointestinal Gastrointestinal: Reports no additional gastrointestinal complaints Physical Exam Vital Signs: Vital Signs: Last Vital Signs Temp 98.2 F 10/21/20 03:34 Pulse 123 H 10/21/20 05:41 Resp 20 10/21/20 03:34 BP 146/103 H 10/21/20 05:41 Pulse Ox 97 10/21/20 03:34 Body Mass Index 23.1 General: AO X 3, no acute distress Resp: CTA bilateral CVS: S1,S2,RRR GI: soft, tender, non distended Neuro: motor grossly intact Psych: appropriate affect Objective Data Current Medications Generic Name Dose Route Start Last Admin Trade Name Freq PRN Reason Stop Dose Admin Acetaminophen 650 mg 10/19/20 11:18 Acetaminophen 325 Mg Tablet PO Q6H PRN Pain, Mild (Pain Scale 1-3) Cyclobenzaprine HCl 10 mg 10/19/20 21:00 10/20/20 20:22 Cyclobenzaprine Hcl 10 Mg Tablet PO 10 mg BEDTIME ANNIE Administration Lactated Ringer's 1,000 mls @ 150 mls/hr 10/19/20 11:18 10/21/20 06:01 Lr IVCONT 150 mls/hr .[id number] ANNIE Administration Magnesium Oxide 400 mg 10/20/20 17:30 10/20/20 18:06 Magnesium Oxide 400 Mg Tablet PO 400 mg BIDPC ANNIE Administration Medication 1 each 10/19/20 09:00 No Benzodiazepines MISCELLANE DAILY ANNIE Protocol Montelukast Sodium 10 mg 10/19/20 21:00 10/20/20 20:22 Montelukast Sodium 10 Mg Tablet PO 10 mg BEDTIME ANNIE Administration Morphine Sulfate 4 mg 10/19/20 11:18 10/20/20 22:25 Morphine Sulfate 4 Mg/Ml Cartridge IVPUSH 4 mg Q4H PRN Administration Pain, Severe (Pain Scale 7-10) Nicotine 21 mg 10/20/20 11:00 10/20/20 11:28 Nicotine 21 Mg Patch.Td24 TRANSDERMA 21 mg DAILY ANNIE Administration Ondansetron HCl 4 mg 10/19/20 11:18 10/19/20 15:09 Ondansetron Hcl 4 Mg/2 Ml Vial IVPUSH 4 mg Q8H PRN Administration Nausea and Vomiting Pantoprazole Sodium 40 mg 10/20/20 06:30 10/21/20 05:58 Pantoprazole Sodium 40 Mg/10 Ml Vial IVPUSH 40 mg BID@5038,2100 [facility] Administration Pharmacy Consult 1 each 10/19/20 11:18 Consult Rx Perform Med Rec MISCELLANE ONCE PRN Consult order Phenobarbital 30 mg 10/21/20 21:00 Phenobarbital 30 Mg Tablet PO 10/23/20 09:01 BID [facility] Phenobarbital 30 mg 10/23/20 21:00 Phenobarbital 30 Mg Tablet PO 10/24/20 09:01 DAILY [facility] Sodium Chloride 3 ml 10/19/20 16:00 10/20/20 20:24 0.9 % Sodium Chloride Flush 3 Ml Syringe IVFLUSH Not Given QSHIFT [facility] Labs CBC & Chem 7: 10/21/20 06:16 10/21/20 06:17 Assessment and Plan (1) Alcohol withdrawal syndrome: Status: Acute (2) Acute alcoholic pancreatitis: Status: Acute (3) Acute alcoholic gastritis: Status: Acute Assessment and Plan: This is a 40-year-old male with a past medical history significant for alcohol abuse and dependence with multiple complications in the past including prior withdrawal as well as pancreatitis who now presents to the hospital after a 4 to five-day binge of heavy alcohol use. He is noted to be in alcohol withdrawal with associated alcohol induced pancreatitis and presumably alcoholic gastritis. Alcohol abuse and dependence with withdrawal Phenobarb per protocol Alcohol cessation has been strongly encouraged Monitor his electrolytes Alcoholic pancreatitis continue clears hypomagnesemia and hypoK replace and monitor Coffee-ground emesis x1 in the ED Presumably secondary to alcoholic gastritis Trend H&H plan for egd tomorrow Elevated blood pressure and tachycardia Improving with phenobarb Suspect secondary to his alcohol withdrawal Observe blood pressure, may need antihypertensives in the future
[2020-10-21] MEDS: Nicotine 21 MG PATCH.TD24 TRANSDERMA (09:40)
[2020-10-21] MEDS: Magnesium Oxide 400 MG TABLET PO ×2 (09:42→17:46)
[2020-10-21] MEDS: Potassium Chloride ER 20 MEQ TAB.ER.PRT 40 MEQ PO (11:58)
[2020-10-21] MEDS: Morphine Sulfate 4 MG/ML CARTRIDGE IVPUSH ×2 (11:59→19:33)
--- NOTE | 2020-10-21 17:44 | PM.EVENT ---
Event Note Date of Service: 10/21/20 Event Note: Patient is iritated from IVF runing and wants to walk around, he is tolerating diet. Will stop IVF for now and ask staff to walk with around
--- NOTE | 2020-10-21 18:37 | PM.EVENT ---
Event Note Date of Service: 10/21/20 Event Note: GI-Course noted-patient reports feeling better with less abdominal pain. There has been no sign of bleeding. Abdominal exam is softer and NT. Hgb is stable, and LFT's and lipase are improved. Patient is agreeable to an EGD for tomorrow afternoon. Will order F/U labs for AM. Please replete potassium if need be. Thanks
[2020-10-21] MEDS: Cyclobenzaprine HCl 10 MG TABLET PO (21:30)
[2020-10-21] MEDS: Montelukast Sodium 10 MG TABLET PO (21:30)
[2020-10-22] VITALS (12 sets, daily range): BP systolic 102–143; BP diastolic 70–101; PULSE 78–100; RESP 14–20; TEMP 36.1–37.1; O2SAT 96–98
[2020-10-22] MEDS: Morphine Sulfate 4 MG/ML CARTRIDGE IVPUSH ×4 (00:04→23:55)
[2020-10-22] MEDS: 0.9 % Sodium Chloride Flush 3 ML SYRINGE IVFLUSH ×4 (00:04→23:56)
[2020-10-22 06:00] LABS: Basophils Percent Auto 0.9 % (0-2); Hematocrit 34.1 % (42-52); Monocytes Absolute Auto 0.6 X10*3/uL (0.1-1.2); PLT CLUMP 1; SCAN SMEAR FLAG 1
[2020-10-22 06:02] LABS: Eosinophils Absolute Auto 0.2 X10*3/uL (0.0-0.4); Eosinophils Percent Auto 3.9 % (0-4); Hemoglobin 12.3 g/dl (14.0-18.0); Imm Gran Abs Auto 0.02 X10*3/uL (0.00-0.03); Imm Gran Pct Auto 0.5 % (0.0-0.4); Lymphocytes Absolute Auto 0.9 X10*3/uL (1.2-4.9); Lymphocytes Percent Auto 19.4 % (20-40); Mean Corpuscular HGB Conc 36.1 g/dl (31.0-36.0); Mean Corpuscular Hemoglobin 33.7 pg (27.0-33.0); Mean Corpuscular Volume 93.4 fL (80-98); Mean Platelet Volume 10.5 fL (9.4-12.4); Monocytes Percent Auto 12.6 % (2-11); Neutrophils Absolute Auto 2.8 X10*3/uL (2.0-8.3); Neutrophils Percent Auto 62.7 % (45-73); Platelet Count 117 X10*3/uL (160-400); Red Blood Count 3.65 X10*6/uL (4.60-5.80); Red Cell Distribution Width 12.3 % (11.0-16.0); White Blood Count 4.4 X10*3/uL (4.8-10.8)
[2020-10-22 06:05] LABS: MANUAL DIFF FLAG NO
[2020-10-22 06:24] LABS: Alanine Aminotransferase 45 U/L (0-40); Albumin Level 3.3 g/dL (3.5-5.0); Alkaline Phosphatase 66 U/L (39-117); Anion Gap 12 (12-20); Aspartate Amino Transferase 53 U/L (5-37); Bilirubin Direct 0.8 mg/dL (0.0-0.5); Bilirubin Total 1.3 mg/dL (0.0-1.0); Blood Urea Nitrogen 6 mg/dL (9-16); Calcium 7.9 mg/dL (8.4-10.2); Carbon Dioxide 32 mmol/L (22-29); Chloride 95 mmol/L (96-108); Creatinine Clr Calc Pharmacy 182.2; Estimated Glomerular Filt Rate > 60; Glucose Fasting 85 mg/dL (60-99); Potassium 3.5 mmol/L (3.3-5.1); Sodium 135 mmol/L (135-145); Total Protein 5.5 g/dL (6.5-8.0)
[2020-10-22 06:41] LABS: Lipase 151 U/L (8-78)
[2020-10-22] MEDS: Potassium Chloride ER 20 MEQ TAB.ER.PRT 40 MEQ PO (07:38)
[2020-10-22] MEDS: Magnesium Oxide 400 MG TABLET PO ×2 (07:38→18:31)
[2020-10-22] MEDS: Nicotine 21 MG PATCH.TD24 TRANSDERMA (07:38)
--- NOTE | 2020-10-22 08:28 | P.PNIM_ITS ---
Subjective Subjective Date of Service: 10/22/20 Interval History: still with abd pain but improved, appetite returned Cardiovascular Cardiovascular: Reports no additional cardiovascular complaints Respiratory Respiratory: Reports no additional respiratory complaints Physical Exam Vital Signs: Vital Signs: Last Vital Signs Temp 98.2 F 10/22/20 07:25 Pulse 87 10/22/20 07:25 Resp 17 10/22/20 07:25 BP 121/84 10/22/20 07:25 Pulse Ox 97 10/22/20 07:25 Body Mass Index 23.1 General: AO X 3, no acute distress Resp: CTA bilateral CVS: S1,S2,RRR GI: soft, non tender, distended Neuro: motor grossly intact Psych: appropriate affect Objective Data Current Medications Generic Name Dose Route Start Last Admin Trade Name Freq PRN Reason Stop Dose Admin Acetaminophen 650 mg 10/19/20 11:18 Acetaminophen 325 Mg Tablet PO Q6H PRN Pain, Mild (Pain Scale 1-3) Cyclobenzaprine HCl 10 mg 10/19/20 21:00 10/21/20 21:30 Cyclobenzaprine Hcl 10 Mg Tablet PO 10 mg BEDTIME ANNIE Administration Magnesium Oxide 400 mg 10/20/20 17:30 10/22/20 07:38 Magnesium Oxide 400 Mg Tablet PO 400 mg BIDPC ANNIE Administration Medication 1 each 10/19/20 09:00 No Benzodiazepines MISCELLANE DAILY [facility] Protocol Montelukast Sodium 10 mg 10/19/20 21:00 10/21/20 21:30 Montelukast Sodium 10 Mg Tablet PO 10 mg BEDTIME ANNIE Administration Morphine Sulfate 4 mg 10/19/20 11:18 10/22/20 00:04 Morphine Sulfate 4 Mg/Ml Cartridge IVPUSH 4 mg Q4H PRN Administration Pain, Severe (Pain Scale 7-10) Nicotine 21 mg 10/20/20 11:00 10/22/20 07:38 Nicotine 21 Mg Patch.Td24 TRANSDERMA 21 mg DAILY ANNIE Administration Omeprazole 40 mg 10/22/20 06:30 10/22/20 06:15 Omeprazole 40 Mg Capsule. PO Not Given DAILY@0630 [facility] Ondansetron HCl 4 mg 10/19/20 11:18 10/19/20 15:09 Ondansetron Hcl 4 Mg/2 Ml Vial IVPUSH 4 mg Q8H PRN Administration Nausea and Vomiting Pharmacy Consult 1 each 10/19/20 11:18 Consult Rx Perform Med Rec MISCELLANE ONCE PRN Consult order Phenobarbital 30 mg 10/21/20 21:00 10/21/20 21:31 Phenobarbital 30 Mg Tablet PO 10/23/20 09:01 30 mg BID ANNIE Administration Phenobarbital 30 mg 10/23/20 21:00 Phenobarbital 30 Mg Tablet PO 10/24/20 09:01 DAILY ANNIE Sodium Chloride 3 ml 10/19/20 16:00 10/22/20 07:38 0.9 % Sodium Chloride Flush 3 Ml Syringe IVFLUSH 3 ml QSHIFT ANNIE Administration Labs CBC & Chem 7: 10/22/20 05:43 10/22/20 05:43 Assessment and Plan (1) Alcohol withdrawal syndrome: Status: Acute (2) Acute alcoholic pancreatitis: Status: Acute (3) Acute alcoholic gastritis: Status: Acute Assessment and Plan: This is a 40-year-old male with a past medical history significant for alcohol abuse and dependence with multiple complications in the past including prior w ithdrawal as well as pancreatitis who now presents to the hospital after a 4 to five-day binge of heavy alcohol use. He is noted to be in alcohol withdrawal with associated alcohol induced pancreatitis and presumably alcoholic gastritis. Alcohol abuse and dependence with withdrawal Phenobarb withdrawl improved Alcohol cessation has been strongly encouraged Monitor his electrolytes Alcoholic pancreatitis continue clears hypomagnesemia and hypoK replace and monitor Coffee-ground emesis x1 in the ED Presumably secondary to alcoholic gastritis Trend H&H plan for egd today Elevated blood pressure and tachycardia Improving with phenobarb Suspect secondary to his alcohol withdrawal
[2020-10-22] MEDS: PHENobarbitaL 30 MG TABLET PO ×2 (09:18→20:10)
[2020-10-22] MEDS: Lactated Ringers 1,000 ML 50 ML IV (13:55)
--- NOTE | 2020-10-22 14:01 | P.CONAN_ITS ---
[facility] Active Problems Active Problems: All Active Problems (Updated 10/19/20 @ 11:22 by Calvin Taylor MD) Alcohol withdrawal syndrome (Acute) Acute alcoholic pancreatitis (Acute) Acute alcoholic gastritis (Acute) Past Medical History Medical History (Updated 10/19/20 @ 11:22 by Calvin Taylor MD) Alcohol abuse Alcohol withdrawal Pancreatitis Family History Family History (Updated 10/19/20 @ 11:14 by Calvin Taylor MD) Other Hypertension Surgical History Surgical History (Updated 10/19/20 @ 11:15 by Calvin Taylor MD) No pertinent past surgical history Social History Social History Household Members: None Housing: Unknown / Unable to assess Do you presently have visiting nurse or other home services: No Alcohol intake: current Alcohol intake frequency: 3 or more drinks per day Alcohol type: beer, wine and hard liquor Smoking Status: Current every day smoker Smoked in Last 30 Days: No Use of substances other than those prescribed or required for medical reasons: Yes Substance Use Type: Marijuana Last Used Substance: Unknown Currently Displaying Signs/Symptoms of Drug Intoxication Withdrawal: No Have you been hit, kicked, punched, or otherwise hurt by someone within the past year? If so, by whom?: No Do you feel safe in your current relationship?: Yes Is there a partner from a previous relationship who is making you feel unsafe now?: No Are you made to feel afraid or neglected: No Advance Directives: No Advance Directives Information Provided: No Do you have thoughts of harming others: None Do you have a plan to hurt others: No Plan Recently lost weight without trying: Unsure service: No Current occupational status: disabled Meds Allergies Allergy/AdvReac Type Severity Reaction Status Date / Time azithromycin Allergy Unknown Verified 07/23/20 10:46 Active Medications: Current Medications Generic Name Dose Route Start Last Admin Trade Name Freq PRN Reason Stop Dose Admin Acetaminophen 650 mg 10/19/20 11:18 Acetaminophen 325 Mg Tablet PO Q6H PRN Pain, Mild (Pain Scale 1-3) Cyclobenzaprine HCl 10 mg 10/19/20 21:00 10/21/20 21:30 Cyclobenzaprine Hcl 10 Mg Tablet PO 10 mg BEDTIME ANNIE Administration Lactated Ringer's 1,000 mls @ 50 mls/hr 10/22/20 14:00 Lr IV .Q20H [facility] Magnesium Oxide 400 mg 10/20/20 17:30 10/22/20 07:38 Magnesium Oxide 400 Mg Tablet PO 400 mg BIDPC ANNIE Administration Medication 1 each 10/19/20 09:00 No Benzodiazepines MISCELLANE DAILY [facility] Protocol Montelukast Sodium 10 mg 10/19/20 21:00 10/21/20 21:30 Montelukast Sodium 10 Mg Tablet PO 10 mg BEDTIME ANNIE Administration Morphine Sulfate 4 mg 10/19/20 11:18 10/22/20 13:06 Morphine Sulfate 4 Mg/Ml Cartridge IVPUSH 4 mg Q4H PRN Administration Pain, Severe (Pain Scale 7-10) Nicotine 21 mg 10/20/20 11:00 10/22/20 07:38 Nicotine 21 Mg Patch.Td24 TRANSDERMA 21 mg DAILY [facility] Administration Omeprazole 40 mg 10/22/20 06:30 10/22/20 06:15 Omeprazole 40 Mg Capsule.Dr PO Not Given DAILY@0630 [facility] Ondansetron HCl 4 mg 10/19/20 11:18 10/19/20 15:09 Ondansetron Hcl 4 Mg/2 Ml Vial IVPUSH 4 mg Q8H PRN Administration Nausea and Vomiting Pharmacy Consult 1 each 10/19/20 11:18 Consult Rx Perform Med Rec MISCELLANE ONCE PRN Consult order Phenobarbital 30 mg 10/21/20 21:00 10/22/20 09:18 Phenobarbital 30 Mg Tablet PO 10/23/20 09:01 30 mg BID ANNIE Administration Phenobarbital 30 mg 10/23/20 21:00 Phenobarbital 30 Mg Tablet PO 10/24/20 09:01 DAILY [facility] Sodium Chloride 3 ml 10/19/20 16:00 10/22/20 07:38 0.9 % Sodium Chloride Flush 3 Ml Syringe IVFLUSH 3 ml QSHIFT [facility] Administration Home Medications Medication Instructions Recorded Confirmed Last Taken Type albuterol sulfate 2 puff PO QID PRN 10/19/20 10/19/20 Unknown History cyclobenzaprine 10 mg PO BEDTIME 10/19/20 10/19/20 Unknown History diclofenac sodium 50 mg PO BID PRN 10/19/20 10/19/20 Unknown History hydroxyzine HCl 25 mg PO TID PRN 10/19/20 10/19/20 Unknown History montelukast 10 mg PO BEDTIME 10/19/20 10/19/20 Unknown History ondansetron HCl 4 mg PO Q8H PRN 10/19/20 10/19/20 Unknown History Exam Exam Date and Time: October 22, 2020 1401 Height,Weight and Vital Signs: Height 6 ft Weight 77.4 kg Last Vital Signs Temp 98.7 F 10/22/20 13:52 Pulse 92 10/22/20 13:52 Resp 18 10/22/20 13:52 BP 136/96 H 10/22/20 13:52 Pulse Ox 96 10/22/20 13:52 Pertinent Lab Results Pertinent Lab Results: Laboratory Tests 10/19/20 10/19/20 10/19/20 06:41 06:41 06:41 WBC 9.2 RBC 4.97 Hgb 16.6 Hct 46.6 MCV 93.8 MCH 33.4 H MCHC 35.6 RDW 12.9 Plt Count 138 L MPV 9.0 L Immature Gran % (Auto) 0.2 Neut % (Auto) 85.5 H Lymph % (Auto) 4.5 L Letcher % (Auto) 9.6 Eos % (Auto) 0.0 Baso % (Auto) 0.2 Lymph # (Auto) 0.4 L Letcher # (Auto) 0.9 Eos # (Auto) 0.0 Baso # (Auto) 0.0 Abs Immat Gran (auto) 0.02 Absolute Neuts (auto) 7.9 Absolute Nucleated RBC 0.000 Nucleated RBC % (auto) 0.0 Smear Tech's Comments VERIFIED PT INR APTT Sodium 144 Potassium 3.4 Chloride 101 Carbon Dioxide 23 Anion Gap 23 H BUN 10 Creatinine 0.80 Estim Creat Clear Calc 134.3 Estimated GFR > 60 Random Glucose 112 Fasting Glucose Calcium 7.9 L Magnesium Total Bilirubin 1.2 H Direct Bilirubin AST 189 H ALT 116 H Alkaline Phosphatase 84 D Total Protein 6.6 Albumin 3.9 Lipase Gastric Occult Blood Urine Opiates Screen Ur Barbiturates Screen Ur Phencyclidine Scrn Ur Amphetamines Screen U Benzodiazepines Scrn Urine Cocaine Screen U Marijuana (THC) Screen Ethyl Alcohol COVID-19 (GUS) Negative COVID-19 Clin Com See Note 10/19/20 10/19/20 10/19/20 06:41 06:41 06:41 WBC RBC Hgb Hct MCV MCH MCHC RDW Plt Count MPV Immature Gran % (Auto) Neut % (Auto) Lymph % (Auto) Letcher % (Auto) Eos % (Auto) Baso % (Auto) Lymph # (Auto) Letcher # (Auto) Eos # (Auto) Baso # (Auto) Abs Immat Gran (auto) Absolute Neuts (auto) Absolute Nucleated RBC Nucleated RBC % (auto) Smear Tech's Comments PT 13.4 H INR 1.1 APTT 25.3 Sodium Potassium Chloride Carbon Dioxide Anion Gap BUN Creatinine Estim Creat Clear Calc Estimated GFR Random Glucose Fasting Glucose Calcium Magnesium Total Bilirubin Direct Bilirubin AST ALT Alkaline Phosphatase Total Protein Albumin Lipase 1692 H Gastric Occult Blood Urine Opiates Screen Ur Barbiturates Screen Ur Phencyclidine Scrn Ur Amphetamines Screen U Benzodiazepines Scrn Urine Cocaine Screen U Marijuana (THC) Screen Ethyl Alcohol 26 COVID-19 (GUS) [employer] 10/19/20 10/19/20 10/19/20 07:22 11:36 17:43 WBC RBC Hgb 15.1 15.4 Hct 41.6 L 43.7 MCV MCH MCHC RDW Plt Count MPV Immature Gran % (Auto) Neut % (Auto) Lymph % (Auto) Letcher % (Auto) Eos % (Auto) Baso % (Auto) Lymph # (Auto) Letcher # (Auto) Eos # (Auto) Baso # (Auto) Abs Immat Gran (auto) Absolute Neuts (auto) Absolute Nucleated RBC Nucleated RBC % (auto) Smear Tech's Comments PT INR APTT Sodium Potassium Chloride Carbon Dioxide Anion Gap BUN Creatinine Estim Creat Clear Calc Estimated GFR Random Glucose Fasting Glucose Calcium Magnesium Total Bilirubin Direct Bilirubin AST ALT Alkaline Phosphatase Total Protein Albumin Lipase Gastric Occult Blood POS Urine Opiates Screen Ur Barbiturates Screen Ur Phencyclidine Scrn Ur Amphetamines Screen U Benzodiazepines Scrn Urine Cocaine Screen U Marijuana (THC) Screen Ethyl Alcohol COVID-19 (GUS) [employer] 10/19/20 10/19/20 10/20/20 22:34 23:45 07:41 WBC 7.6 RBC 4.47 L Hgb 15.1 14.8 Hct 42.0 41.5 L MCV 92.8 MCH 33.1 H MCHC 35.7 RDW 12.7 Plt Count 98 L D MPV 10.2 Immature Gran % (Auto) Neut % (Auto) Lymph % (Auto) Letcher % (Auto) Eos % (Auto) Baso % (Auto) Lymph # (Auto) Letcher # (Auto) Eos # (Auto) Baso # (Auto) Abs Immat Gran (auto) Absolute Neuts (auto) Absolute Nucleated RBC 0.000 Nucleated RBC % (auto) 0.0 Smear Tech's Comments PT INR APTT Sodium Potassium Chloride Carbon Dioxide Anion Gap BUN Creatinine Estim Creat Clear Calc Estimated GFR Random Glucose Fasting Glucose Calcium Magnesium Total Bilirubin Direct Bilirubin AST ALT Alkaline Phosphatase Total Protein Albumin Lipase Gastric Occult Blood Urine Opiates Screen POSITIVE H Ur Barbiturates Screen POSITIVE H Ur Phencyclidine Scrn Not Detected Ur Amphetamines Screen Not Detected U Benzodiazepines Scrn POSITIVE H Urine Cocaine Screen Not Detected U Marijuana (THC) Screen Not Detected Ethyl Alcohol COVID-19 (GUS) [employer] 10/20/20 10/20/20 10/21/20 07:41 07:41 06:16 WBC RBC Hgb Hct MCV MCH MCHC RDW Plt Count MPV Immature Gran % (Auto) Neut % (Auto) Lymph % (Auto) Letcher % (Auto) Eos % (Auto) Baso % (Auto) Lymph # (Auto) Letcher # (Auto) Eos # (Auto) Baso # (Auto) Abs Immat Gran (auto) Absolute Neuts (auto) Absolute Nucleated RBC Nucleated RBC % (auto) Smear Tech's Comments PT 14.3 H INR 1.2 H APTT Sodium 136 Potassium 3.3 Chloride 96 Carbon Dioxide 29 Anion Gap 14 BUN 7 L Creatinine 0.63 Estim Creat Clear Calc 170.6 Estimated GFR > 60 Random Glucose 89 Fasting Glucose Calcium 7.8 L Magnesium 1.2 L* Total Bilirubin Direct Bilirubin AST ALT Alkaline Phosphatase Total Protein Albumin Lipase Gastric Occult Blood Urine Opiates Screen Ur Barbiturates Screen Ur Phencyclidine Scrn Ur Amphetamines Screen U Benzodiazepines Scrn Urine Cocaine Screen U Marijuana (THC) Screen Ethyl Alcohol COVID-19 (GUS) [employer] 10/21/20 10/21/20 10/21/20 06:16 06:16 06:17 WBC 6.2 RBC 3.88 L Hgb 13.2 L Hct 35.3 L MCV 91.0 MCH 34.0 H MCHC 37.4 H RDW 12.3 Plt Count 96 L MPV 10.8 Immature Gran % (Auto) 0.3 Neut % (Auto) 74.1 H Lymph % (Auto) 13.5 L Letcher % (Auto) 9.5 Eos % (Auto) 2.3 Baso % (Auto) 0.3 Lymph # (Auto) 0.8 L Letcher # (Auto) 0.6 Eos # (Auto) 0.1 Baso # (Auto) 0.0 Abs Immat Gran (auto) 0.02 Absolute Neuts (auto) 4.6 Absolute Nucleated RBC 0.000 Nucleated RBC % (auto) 0.0 Smear Tech's Comments PT INR APTT Sodium 131 L Potassium 2.7 L Chloride 91 L Carbon Dioxide 31 H Anion Gap 12 BUN 5 L Creatinine 0.59 Estim Creat Clear Calc 182.2 Estimated GFR > 60 Random Glucose Fasting Glucose 111 H Calcium 7.8 L Magnesium 1.7 Total Bilirubin 1.9 H Direct Bilirubin 1.1 H AST 99 H ALT 62 H Alkaline Phosphatase 84 Total Protein 5.8 L Albumin 3.5 Lipase 207 H Gastric Occult Blood Urine Opiates Screen Ur Barbiturates Screen Ur Phencyclidine Scrn Ur Amphetamines Screen U Benzodiazepines Scrn Urine Cocaine Screen U Marijuana (THC) Screen Ethyl Alcohol COVID-19 (GUS) COVID-19 Clin Com 10/22/20 10/22/20 10/22/20 05:43 05:43 05:43 WBC 4.4 L RBC 3.65 L Hgb 12.3 L Hct 34.1 L MCV 93.4 MCH 33.7 H MCHC 36.1 H RDW 12.3 Plt Count 117 L MPV 10.5 Immature Gran % (Auto) 0.5 H Neut % (Auto) 62.7 Lymph % (Auto) 19.4 L Letcher % (Auto) 12.6 H Eos % (Auto) 3.9 Baso % (Auto) 0.9 Lymph # (Auto) 0.9 L Letcher # (Auto) 0.6 Eos # (Auto) 0.2 Baso # (Auto) 0.0 Abs Immat Gran (auto) 0.02 Absolute Neuts (auto) 2.8 Absolute Nucleated RBC 0.000 Nucleated RBC % (auto) 0.0 Smear Tech's Comments PT INR APTT Sodium 135 Potassium 3.5 D Chloride 95 L Carbon Dioxide 32 H Anion Gap 12 BUN 6 L Creatinine 0.59 Estim Creat Clear Calc 182.2 Estimated GFR > 60 Random Glucose Fasting Glucose 85 Calcium 7.9 L Magnesium 2.0 Total Bilirubin 1.3 H Direct Bilirubin 0.8 H AST 53 H ALT 45 H Alkaline Phosphatase 66 D Total Protein 5.5 L Albumin 3.3 L Lipase 151 H Gastric Occult Blood Urine Opiates Screen Ur Barbiturates Screen Ur Phencyclidine Scrn Ur Amphetamines Screen U Benzodiazepines Scrn Urine Cocaine Screen U Marijuana (THC) Screen Ethyl Alcohol COVID-19 (GUS) COVID-19 Clin Com Airway Mallampati Class: II TM Dist: >3cm Neck ROM: Full Heart: RrR Lungs: CTa BL Assessment and Plan Assessment Anesthesia Assessment: Anesthesia Plan Discussed and Chart Reviewed Final Anesthetic Review NPO: Yes ASA Class: III Final Preanesthetic Review: No Changes in Pt Med Stat and Consent Obtained/Reviewed Patient Risk: Intermediate Anesthetic Plan Anesthetic Plan: MAC: Disposition: Standard PACU
--- NOTE | 2020-10-22 14:07 | MHC.CM.PN ---
NURSE CONTENT CHECKER NOTE ELECTRONIC MEDICAL RECORD REVIEWED ANG WITH CASE DISCUSSED WITH STAFF NURSE AND ON MULTIPLE DISCIPLINARY ROUNDS , PATIENT ADMITTED N 10/19/20 AND CONSULT INIATED WITH THE RECOVER NURSE SPECIALIST , , AYANNA SALGADO TODAY TO INFORM HER PATIENT IS STILL HERE AND ANTICIPATE DISCHAGRE TOMORROW PATIENT HAD OLF FEMUR FRACTURE BRACE HAS BEEN ORDERED FOR HIM, HOWSPITALIST DISCHARGE PLAN PER RECOMENDATION OF RECOVER NURSE SPECIALIST, (HOSPITLAIST AT THIS TIME DOES NOT FEEL HE WILL NEED ANY VNA VISISTS).
--- NOTE | 2020-10-22 15:24 | PM.OP ---
Brief Operative Note Date of Service: 10/22/20 Pre-op diagnosis: UGI Bleeding Post-op diagnosis: other (Esophagitis, R/O Denise, Duodenitis, Gastritis) Procedure: EGD with biopsy Surgeon: Deacon Young Anesthesia: MAC Estimated blood loss (mL): 4.0 Pathology: other (A. Gastric antrum B. Esophagus at 30cm, R/O Denise) Condition: stable Disposition: PACU
--- NOTE | 2020-10-22 15:27 | PM.EVENT ---
Event Note Date of Service: 10/22/20 Event Note: GI-EGD with biopsies-Full note dictated Findings: 1. Erosive esophagitis, R/O Denise-biopsies taken 2. Small hiatal hernia 3. Antral gastritis-Biopsied x 3 4. Duodenitis Rec: Check path, continue PPI, advance diet as tolerated, F/U labs in AM. Thanks
--- NOTE | 2020-10-22 16:36 | PC.NURSE ---
patient refuses bed alarm,telesiter on,PEN TESTER made aware
[2020-10-22] MEDS: Cyclobenzaprine HCl 10 MG TABLET PO (20:11)
[2020-10-22] MEDS: Montelukast Sodium 10 MG TABLET PO (20:11)
--- NOTE | 2020-10-23 00:04 | OP_ITS ---
SURGEON: Deacon Young MD INDICATIONS: The patient presents for evaluation of upper GI bleeding. Full consent has been obtained from him for this, including risks of bleeding and perforation. PREOPERATIVE DIAGNOSIS: Upper gastrointestinal bleeding. POSTOPERATIVE DIAGNOSIS: PROCEDURE PERFORMED: Esophagogastroduodenoscopy with biopsies. ESTIMATED BLOOD LOSS: COMPLICATIONS: ANESTHESIA: Monitored anesthesia care. ASSISTANTS: SPECIMENS: POSTOPERATIVE DIAGNOSES: Upper gastrointestinal bleeding, esophagitis, rule out Denise, hiatal hernia, gastritis, and duodenitis. DESCRIPTION OF PROCEDURE: The patient was placed in the left lateral decubitus position. The Olympus video gastroscope was passed in the posterior oropharynx and upper esophagus under direct vision. The scope was passed slowly into the distal esophagus. The gastroesophageal junction appeared at 36 cm. Extending from this to almost the entire length of the esophagus, was some evidence of esophagitis, but what I felt was primarily a Denise esophagitis. There was no ulceration nor mass. There was no bleeding. The scope entered into the stomach. There was a small hiatal hernia. The scope was advanced to pylorus and duodenum was cannulated to the descending portion. The duodenum including the bulb was carefully inspected. There was a mild area of duodenitis in the distal duodenal bulb, but without ulceration or mass. The scope was withdrawn back in the stomach. The gastric antrum had some mild areas of erythema and edema, but no ulceration nor mass. There was good peristalsis. Scope was retroflexed visualizing the proximal stomach carefully, which appeared normal, without any sign of mass or ulceration. The scope was straightened. Biopsies were obtained from the gastric antrum. The scope was withdrawn back into the esophagus. Biopsies were obtained in the esophagus at 30 cm. I did not appreciate any varices. The scope was withdrawn from the patient. He tolerated the procedure well and was returned to the recovery area in stable condition. IMPRESSION: 1. Esophagitis, rule out Denise. 2. Small hiatal hernia. 3. Gastritis. 4. Duodenitis. PLAN: The results of the biopsies will be checked. If the esophageal biopsies do show Denise, he would need a 21-day course of Diflucan. If Helicobacter pylori is present in the gastric biopsies, I would recommend that be treated at some point as well. The medina thing for him will be to avoid all NSAIDs and alcohol going forward. His diet will be advanced in regard to the pancreatitis and he will have followup laboratories tomorrow. MD GERALD Yang/MARCELLE / [id number]
[2020-10-23 03:41] VITALS: BP 142/104; PULSE 90; RESP 20; TEMP 36.4; O2SAT 95
[2020-10-23 06:16] LABS: MANUAL DIFF FLAG NO
[2020-10-23] MEDS: Omeprazole 40 MG CAPSULE.DR PO (06:28)
[2020-10-23 06:46] LABS: Basophils Percent Auto 0.9 % (0-2); Eosinophils Absolute Auto 0.2 X10*3/uL (0.0-0.4); Eosinophils Percent Auto 4.9 % (0-4); Hematocrit 33.6 % (42-52); Hemoglobin 12.2 g/dl (14.0-18.0); Imm Gran Abs Auto 0.01 X10*3/uL (0.00-0.03); Imm Gran Pct Auto 0.2 % (0.0-0.4); Lymphocytes Absolute Auto 1.1 X10*3/uL (1.2-4.9); Lymphocytes Percent Auto 25.2 % (20-40); Mean Corpuscular HGB Conc 36.3 g/dl (31.0-36.0); Mean Corpuscular Volume 93.6 fL (80-98); Mean Platelet Volume 10.5 fL (9.4-12.4); Monocytes Absolute Auto 0.8 X10*3/uL (0.1-1.2); Monocytes Percent Auto 19.4 % (2-11); Neutrophils Absolute Auto 2.1 X10*3/uL (2.0-8.3); Neutrophils Percent Auto 49.4 % (45-73); Platelet Count 159 X10*3/uL (160-400); Red Blood Count 3.59 X10*6/uL (4.60-5.80); Red Cell Distribution Width 12.3 % (11.0-16.0); White Blood Count 4.3 X10*3/uL (4.8-10.8)
[2020-10-23 07:10] LABS: Anion Gap 11 (12-20); Blood Urea Nitrogen 4 mg/dL (9-16); Calcium 8.2 mg/dL (8.4-10.2); Carbon Dioxide 32 mmol/L (22-29); Chloride 95 mmol/L (96-108); Creatinine Clr Calc Pharmacy 179.1; Estimated Glomerular Filt Rate > 60; Glucose Fasting 123 mg/dL (60-99); Potassium 4.4 mmol/L (3.3-5.1); Sodium 134 mmol/L (135-145)
[2020-10-23 07:45] LABS: Lipase 217 U/L (8-78)
[2020-10-23 07:48] VITALS: BP 122/94; PULSE 83; RESP 17; TEMP 37.2; O2SAT 97
[2020-10-23] MEDS: Nicotine 21 MG PATCH.TD24 TRANSDERMA (08:54)
[2020-10-23] MEDS: PHENobarbitaL 30 MG TABLET PO (08:55)
[2020-10-23] MEDS: Magnesium Oxide 400 MG TABLET PO (08:55)
[2020-10-23] MEDS: Morphine Sulfate 4 MG/ML CARTRIDGE IVPUSH (09:12)
--- NOTE | 2020-10-23 09:22 | MHC.RECOVRN ---
40 year old male presented to [facility] ED via ambulance on 10/19/20 due to Walk into for alcohol withdrawals, states his last drink was yesterday, drinks daily but reports varying amounts of beer and liquor. Reports a history of alcohol withdrawals but denies SZ. Denies SI, denies wanting rehab/detox at this time. Given 2 mg of Versed by EMS. per full fashioned garment knitter. Pt subsequently admitted due to alcohol withdrawal, pancreatitis, and gastritis. Pt was put on phenobarbital taper.? T/w met with pt in 383 to discuss alcohol use. Pt reports drinking 4 drinks daily for a few weeks, however, pts use increased around [facility] [employer] day, unknown amount. Prior?to presenting to [facility], pt had one drink and was going to do it on my own. Pt began to feel unwell and came to ED.? Pt reports?February 2020 was the first time pt had entered recovery and remained for several months. In Apr/May pt returned to use and was diagnosed with pancreatitis. Pt denies ATS admissions.?Currently, pt states I've learned that I just can't drink. My partner has a liver problem so she doesn't drink either. Now I have a medical reason not to. Pt reports having a refinery operator light ends recovery and therapist through [facility] x 2 months. Pt reports having supportive friends who are in recovery and pt has told them he would attend AA with them and see what it's like. Pt is looking forward to finding work and states I just know everything is better without alcohol. Life is more fun. Pt confident that recovery is possible with the supports in place.? Pt provided with other resources for recovery, including information regarding medication for alcohol use disorder and [facility] information. Pt given t/w card if questions or concerns arise.?
--- NOTE | 2020-10-23 13:49 | HO.POSTANES ---
Post Anesthesia Evaluation Post Anesthesia Evaluation Vital Signs: Vital Signs Temp Pulse Resp BP Pulse Ox 10/23/20 07:48 98.9 F 83 17 122/94 H 97 10/23/20 03:41 97.6 F 90 20 142/104 H 95 Anesthesia: Monitored Mental Status: Awake Pain Control: Satisfactory Nausea/Vomiting: None Hydration: Adequate Anesthesia-Related Issues: No Anes. Related Issues
[2020-10-23 14:01] VITALS: O2SAT 98
--- NOTE | 2020-10-23 14:15 | PM.DS ---
DS: Providers Provider Date of Service: 10/23/20 Date of admission: 10/19/20 11:03 Primary care physician: Unknown Physician Consults: 10/19/20 11:18 Consult to Gastroenterology Routine Consulting Provider: Deacon Young Reason for consultation: coffee ground emesis 10/22/20 14:02 Consult to Care Team Routine Comment: Reason for consultation: ADMITT 10/19/20 PANCREATITIS , ETOH WITHDRAWL DS: Diagnosis Discharge Diagnosis (1) Alcohol withdrawal syndrome: Status: Acute (2) Acute alcoholic pancreatitis: Status: Acute (3) Acute alcoholic gastritis: Status: Acute DS: Medications Discharge Medications Home Medications: Home Medications Medication Instructions Recorded Confirmed albuterol sulfate 2 puff PO QID PRN 10/19/20 10/19/20 cyclobenzaprine 10 mg PO BEDTIME 10/19/20 10/19/20 hydroxyzine HCl 25 mg PO TID PRN 10/19/20 10/19/20 montelukast 10 mg PO BEDTIME 10/19/20 10/19/20 ondansetron HCl 4 mg PO Q8H PRN 10/19/20 10/19/20 Previous Rx's Medication Instructions Recorded omeprazole 40 mg PO DAILY@0630 #30 cap 10/23/20 DS: Summary Hospital Course Hospital Course: Patient was admitted for acute alcoholic pancreatitis complicated by alcohol dependence with withdrawal. He was given IV fluids, pain medication, phenobarbital protocol. He was also noted to have some GI bleeding, hemoglobin decreased from 16.6-12.2, some of this may be dilutional, but he did have some coffee-ground emesis. Hemoglobin has been stable at time of discharge. Patient's withdrawal symptoms improved with phenobarbital and his blood pressure became normal. He was seen by Gastroenterology recommended IV PPI and then performed EGD which showed, possible candidiasis. Also showed antral gastritis with biopsies taken and duodenitis. His diclofenac was discontinued. Pathology should be followed up as there was suspicion for candidiasis. He was also started on p.o. Prilosec. For patient's pancreatitis his symptoms improved and he was able eventually to tolerate solid diet. Patient is now feeling much better will be discharged home. He should follow up with Gastroenterology as outpatient. Time Spent with Patient Time attestation: Total time spent providing and/or coordinating discharge services: Discharge coordination time: Greater than 30 minutes Physical Exam Vital Signs: Vital Signs: Last Vital Signs Temp 98.9 F 10/23/20 07:48 Pulse 83 10/23/20 07:48 Resp 17 10/23/20 07:48 BP 122/94 H 10/23/20 07:48 Pulse Ox 97 10/23/20 07:48 Body Mass Index 23.1 General: AO X 3, no acute distress Resp: CTA bilateral CVS: S1,S2,RRR GI: soft, non tender, non distended Neuro: motor grossly intact Psych: appropriate affect DS: Data Data Completed and Pending Pending studies at discharge: Pending at discharge 10/22/20 15:10 Surgical [PTH] Routine Labs on day of discharge: Laboratory Results - last 24 hr 10/23/20 10/23/20 10/23/20 06:06 06:06 06:06 WBC 4.3 L RBC 3.59 L Hgb 12.2 L Hct 33.6 L MCV 93.6 MCH 34.0 H MCHC 36.3 H RDW 12.3 Plt Count 159 L D MPV 10.5 Immature Gran % (Auto) 0.2 Neut % (Auto) 49.4 Lymph % (Auto) 25.2 [place] % (Auto) 19.4 H Eos % (Auto) 4.9 H Baso % (Auto) 0.9 Lymph # (Auto) 1.1 L [place] # (Auto) 0.8 Eos # (Auto) 0.2 Baso # (Auto) 0.0 Abs Immat Gran (auto) 0.01 Absolute Neuts (auto) 2.1 Absolute Nucleated RBC 0.000 Nucleated RBC % (auto) 0.0 Sodium 134 L Potassium 4.4 D Chloride 95 L Carbon Dioxide 32 H Anion Gap 11 L BUN 4 L Creatinine 0.60 Estim Creat Clear Calc 179.1 Estimated GFR > 60 Fasting Glucose 123 H D Calcium 8.2 L Lipase 217 H Discharge Plan Discharge Patient Disposition: Home, Self-Care Referrals: Physician,Unknown [Primary Care Provider] - Deacon Young [Physician] - 1 Week Discharge Medications: New omeprazole 40 mg Capsule,Delayed Release(Dr/Ec) 40 mg PO DAILY@0630 Qty: 30 RF: 0 Continued cyclobenzaprine 10 mg tablet 10 mg PO BEDTIME RF: 0 ondansetron HCl 4 mg tablet 4 mg PO Q8H PRN (Reason: Nausea And Vomiting) RF: 0 montelukast 10 mg tablet 10 mg PO BEDTIME RF: 0 hydroxyzine HCl 25 mg tablet 25 mg PO TID PRN (Reason: Anxiety) RF: 0 albuterol sulfate 90 mcg/actuation HFA aerosol inhaler 2 puff PO QID PRN (Reason: wheezing) RF: 0 Discontinued diclofenac sodium 50 mg tablet,delayed release (DR/EC) 50 mg PO BID PRN (Reason: moderate pain) RF: 0 Discharge Orders: Discharge Order (Routine); Ordered 10/23/20 Ordered By: Alex Trivedi Diet: low fat, low cholesterol Activity on Discharge: As tolerated Stand Alone Forms: Patient Portal Discharge page Care Plan Goals: recovery Health Concerns: gastritis, etoh Plan of Treatment: stop all alcohol, follow up with gi, start prilosec
--- NOTE | 2020-10-23 14:47 | MHC.CM.PN ---
NURSE MEATCUTTER NOTE ELECTRONIC MEDICAL RECORD REVIEWED ALONG W ITH CASE DISCUSSED WITH STAFF NURSE AND HOSPITALIST , MET WITH PATIENT HE IS AWARE THAT HE WILL BE DISCHARGED TODAY HE ALSO HAS MET WITH THE BUFFING WHEEL OPERATOR NURSE (PLEASE SEE BELINDA ESPARZA NOTE- 10/23/20) HE IS AWARE OF COMMUNITY SUPPORTS PROGRAMS AND SERIVCES ) DISCHARGE PLAN HOME NO SERVICES PCP PATIENT TO CALL FOR FOLLOW UP POST HOSPITAL DISCHARGE TRANSPORTATION PATIENT TO SELF ARRANGE DR EASON -PATIENT TO CALL FOR FOLLOW UP .
== END 2020-10-23 15:01 | disposition home or self-care (01) | DRG 282 ==
LOC: HO.ED 08:34 → HO.EDOVER 11:18 → HO.S3 12:03
PROVIDERS: Internal Medicine; Admitting Provider Family Medicine; Emergency Provider Emergency Medicine Emergency Medical Services; PCP Family Medicine; Visit Provider Internal Medicine
PROC: 0DJ08ZZ Inspection of Upper Intestinal Tract, Via Natural or Artificial Opening Endoscopic (ICD-10-PCS; CPT 43235; principal; 2020-10-22 14:10)
DX: K85.20 Alcohol induced acute pancreatitis without necrosis or infection (principal); K22.11 Ulcer of esophagus with bleeding; K29.21 Alcoholic gastritis with bleeding; E87.6 Hypokalemia; F10.230 Alcohol dependence with withdrawal, uncomplicated; E83.42 Hypomagnesemia; K44.9 Diaphragmatic hernia without obstruction or gangrene; K29.81 Duodenitis with bleeding; F17.210 Nicotine dependence, cigarettes, uncomplicated; Z71.6 Tobacco abuse counseling; Z20.822 Contact with and (suspected) exposure to COVID-19; Z79.899 Other long term (current) drug therapy
CPT/HCPCS: 36415; 71045; 74177; 80048; 80053; 80076; 80307; 80320; 82271; 83690; 83735; 85014; 85018; 85025; 85027; 85610; 85730; 87635; 88305; 88312; 88342; 93005; 96365; 96366; 96372; 96375; 99285; 99291; J2060; J2250; J2270; J2405; J2560; J3475; Q9967